=== PATIENT | male | born 1970 | race Caucasian/White ===

== ENCOUNTER 2024-02-02 14:01 | Outpatient (CLI) | payer OTHER, SELFPAY ==
[2024-02-02 15:40] LABS: Lipase 138 U/L (23-300)
[2024-02-14 16:04] LABS: Conventional Class 0; Galactose Alpha 1,3 IgE <0.10; kU/L <0.10
== END 2024-02-02 14:02 | disposition home or self-care (01) ==
LOC: ANHLAB 14:02
PROVIDERS: PCP Internal Medicine; Visit Provider Nurse Practitioner Family
DX: R74.8 Abnormal levels of other serum enzymes (principal)
CPT/HCPCS: 36415; 83690; 86008

== ENCOUNTER 2025-01-15 09:29 | Inpatient (IN) | payer OTHER, SELFPAY ==
--- NOTE | ~2025-01-15 | CT_ITS ---
EXAMINATION: CT abdomen pelvis w con DATE: 01/15/2025 10:32 INDICATION: Lower abdomen pain TECHNIQUE: Computed tomography (CT) of the abdomen and pelvis was performed with 100 cc Omnipaque 350 intravenous contrast. The dose-length product was 547.43 mGy-cm. Automated exposure control and iter ative reconstruction technique were employed. COMPARISON: None. FINDINGS: Lung bases are unremarkable. Heart size normal. No significant pleural or pericardial effus ion. Fatty infiltration of the liver. The spleen, pancreas, adrenal glands are unremarkable. Gallblad pia is present. There is sigmoid diverticulitis with a small diverticular abscess contiguous with the colon measuring 3 x 2 cm. No obstruction. Air-fluid levels present in the proximal small bowel, like ly ileus. No significant vascular abnormality. No lymphadenopathy. Small fat-containing left inguinal hernia. Mild osteoarthritis of the hips. Nonobstructing bilateral renal stones. Small right renal cy st. IMPRESSION: 1. Acute sigmoid diverticulitis with diverticular abscess measuring 3 x 2 cm. 2: Nonobstructing bilateral nephrolithiasis. Reviewed, dictated and finalized at location A.
[2025-01-15 09:34] VITALS: BP 164/94; PULSE 82; RESP 18; O2SAT 100
--- OUTSIDE RECORDS SUMMARY | 2025-01-15 09:37 | XMS_ITS | Clinical Summary ---
Author Organization [facility] Address [address] [place] [address] Care Team Providers Care Services Executive Name Role Phone Hernesto Loo NP Primary Care Provider [phone] Allergies Active Allergy Reactions Criticality Noted Date Comments Penicillins Unknown 07/28/2014 Reaction as a child. Medications No known medications Active Problems Problem Noted Date Diagnosed Date Agitation 12/21/2020 Fatigue, unspecified type 12/21/2020 Bone spur of right foot 04/21/2017 Adenopathy, cervical 01/16/2017 Abdominal pain 07/14/2016 Umbilical hernia 07/14/2016 Erectile dysfunction 07/28/2014 Overview (07/06/2020): Date Onset: 07/28/2014 Hypertriglyceridemia 07/28/2014 Overview (07/06/2020): Date Onset: 07/28/2014 Date Onset: 07/28/2014 Metatarsalgia 07/28/2014 Overview (07/06/2020): Date Onset: 07/28/2014 Personal history of other en docrine, nutritional and metabolic disease 07/28/2014 Overview (07/06/2020): Date Onset: 07/28/2014 Renal lithiasis 07/28/2014 Overview (07/06/2020): Date Onset: 07/28/2014 Resolved Problems Problem Noted Date Diagnosed Date Resolved Date Acute dermatitis 07/28/2014 12/21/2020 Overview (07/06/2020): Date Onset: 07/28/2014 Vesicular palmoplantar eczema 07/28/2014 12/21/2020 Overview (07/06/2020): Date Onset: 07/28/2014 Immunizations Immunization Administration Dates Next Due Fluzone Adult - >Age 3 (Pref illed Syringe) 07/06/2020(Deferred: Parent refused) Td (Tenivac) preservative free 02/11/2014 Family History Medical History Relation Comments No Known Problems Father COPD Mother Diabetes Mother Hypertension Mother Relation Status Comments Father Mother Social History Tobacco Use Types Packs/Day Years Used Date Smoking Tobacco: Never Smokeless Tobacco: Never Tobacco Cessation:Counseling Given: Not Answered Alcohol Use Standard Drinks/Week Comments Not Currently 0 (1 standard drink = 0.6 oz pur e alcohol) PHQ-2 Answer Date Recorded PHQ-2 Score - If the patient scores above 3, please move on to questions 3-9 0 12/21/2020 Sex and Gender Information Value Date Recorded Sex Assigned at Not on file Legal Sex Male 4:08 PM CDT Gender Identity Not on file Sexual Orientation Not on file Last Filed Vital Signs Vital Sign Reading Time Taken Comments Blood Pressure 152/99 01/27/2024 9:17 PM CDT Pulse 82 01/27/2024 9:17 PM CDT Temperature 36.7 C (98 F) 01/27/2024 5:20 PM CDT Respiratory Rate 16 01/27/2024 9:17 PM CDT Oxygen Saturation 94% 01/27/2024 9:17 PM CDT Inhaled Oxygen Concentration - - Weight 83.9 kg (185 lb) 01/27/2024 5:20 PM CDT Height 165.1 cm (5' 5 ) 01/27/2024 5:20 PM CDT Body Mass Index 30.79 01/27/2024 5:20 PM CDT Plan of Treatment Health Maintenance Due Date Last Done Comments Colorectal Cancer Screening Colonoscopy (10 Years) 1968 Annual Physical 1971 Hepatitis C 1986 Hepatitis B Vaccines (1 of 3 - 19+ 3-dose series) 1987 DTaP, Tdap and Td Vaccines ( 1 - Tdap) 02/12/2014 02/11/2014 Pneumococcal Vaccine: 50+ Ye ars (1 of 1 - PCV) 2018 Zoster Vaccines (1 of 2) 2018 COVID-19 Vaccine (1 - 2023-2 5 season) 2024 PHQ-2 (Physician [place]) 09/04/2024 Meningococcal B Vaccine Aged Out No l onger eligible based on patient's age to complete this topic Meningococcal Vaccine Aged Out No bobby dayana eligible based on patient's age to complete this topic RSV Immunizations Under 20 Months Aged Out No longer eligible based on patient's age to complete this topic Insurance [employer] Care Teams Services Executive Relationship Specialty Start Date End Date Hernesto Loo NP [address] [place] [id number] PCP - General Nurse Practitioner Family 08/07/23
--- OUTSIDE RECORDS SUMMARY | 2025-01-15 09:37 | XMS_ITS | Encounter Summary ---
Author Organization [facility] Address [facility] [place] [address] [address] Team [address] Care [address] Freight Brake Coupler Name Role Phone Martell Kelly MD Primary Care Provider U Tess Raman REGIONAL COORDINATOR Primary Care Provider [phone] Hernesto Loo REGIONAL COORDINATOR Primary Care Provider [phone] Encounter Details Date Type Department Care Team (Late st Contact Info) Description 09/16/2020 Medication Management [facility] Family & Internal Medicine [address] [address] Martell Kelly MD Social History Tobacco Use Types Packs/Day Years Used Date Smoking Tobacco: Never Smokeless Tobacco: Never Alcohol Use Standard Drinks/Week Comments Yes 3.3 (1 standard drink = 0.6 oz p ure alcohol) occ PHQ-2 Answer Date Recorded PHQ-2 Score 0 07/06/2020 Sex and Gender Information Value Date Recorded Sex Assigned at Not on file Legal Sex Male 4:08 PM CDT Gender Identity Not on file Sexual Orientation Not on file COVID-19 Exposure Response Date Recorded In the last month, have you been in contact with someone who was confirmed or suspected to have Coronavirus / COVID-19? 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 documented as of this encounter Plan of Treatment Not on file documented as of this encounter Visit Diagnoses Diagnosis Periumbilical abdominal pain- Primary Abdominal pain, periumbilic documented in this encounter Care Teams Road Freight Brake Coupler Relationship Specialty Start Date End Date Martell Kelly MD PCP - General INTERNAL MEDICINE 07/06/20 12/08/22 [place] [address], [address] [place], [place] [id number] PCP - General Nurse Practitioner Family 12/09/2208/06/23 Hernesto Loo NP [address] [place] [phone] PCP - General Nurse Practitioner Family 08/07/23 documented as of this encounter
--- OUTSIDE RECORDS SUMMARY | 2025-01-15 09:37 | XMS_ITS | Clinical Summary ---
Author Organization [facility] Address [address] [place] [phone] Care Team Providers Care Software Analyst Name Role Phone No, Physician Primary Care Provider [phone] Allergies Active Allergy Reactions Criticality Noted Date Comments Penicillins Unknown 06/22/2020 Medications clobetasoL (TEMOVATE) 0.05 % ointment Twice daily for 5 days/week to worst areas as needed 60 g 2 06/22/2020 Active Active Problems No known active problems Social History Tobacco Use Types Packs/Day Years Used Date Smoking Tobacco: Never Alcohol Use Standard Drinks/Week Comments Not Currently 0 (1 standard drink = 0.6 oz pur e alcohol) Personal Safety Answer Date Recorded Getting School Help Needed Not on file 11/17 Sex and Gender Information Value Date Recorded Sex Assigned at Not on file 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
--- OUTSIDE RECORDS SUMMARY | 2025-01-15 09:37 | XMS_ITS | Referral Summary ---
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
[2025-01-15 09:46] VITALS: BP 152/97; PULSE 84; RESP 20; O2SAT 99
--- NOTE | 2025-01-15 10:07 | ED.ABDPAIN ---
HPI - Abdominal Pain General Chief Complaint: Abdominal Pain Stated Complaint: lower abd pain Time Seen by Provider: 01/15/25 09:42 History of Present Illness HPI narrative: 54-year-old male with a history of pancreatitis, hepatic steatosis presents to emergency department with at bedside for lower abdominal pain for past several weeks, worsening over the past couple of days. Patient states the pain is diffusely throughout his lower abdomen, worse with food or fluid intake. He reports decreased p.o. intake secondary to the pain. He states he has had firm small, pebble like stools, his last bowel movement was small in caliber and this morning at 7:00 a.m.. States he took Ex-Lax, Bentyl and Protonix without improvement. Patient had a EGD and colonoscopy performed about a year and half ago at [facility] which reportedly showed multiple polyps which were removed and reportedly benign. Related Data Home Medications Medication Instructions Recorded Confirmed Last Taken Type pantoprazole 40 mg tablet,delayed 40 mg PO QAM 01/22/24 02/02/24 Unknown History release dicyclomine 10 mg capsule 10 mg PO TID 02/02/24 02/02/24 Unknown History metoclopramide HCl 10 mg tablet 10 mg PO Q6H PRN 02/02/24 02/02/24 Unknown History Allergies Allergy/AdvReac Type Severity Reaction Status Date / Time Penicillins Allergy Unknown Rash Verified 01/15/25 09:59 Review of Systems Review of Systems: All systems reviewed & are unremarkable except as noted in HPI and below PMFSH Social History Social History Smoking status: Former smoker Alcohol intake: never Substance use: current Substance use type: marijuana Exam Narrative: GENERAL: Well-appearing, well-nourished, and in no acute distress. HEAD: Normocephalic, atraumatic. EYES: EOMI. ENT: Nares clear, no rhinorrhea or epistaxis. Mucous membranes moist. NECK: Supple. CHEST: Clear to auscultation. No respiratory distress. HEART: Regular rate and rhythm. No murmur heard. Normal peripheral pulses. ABDOMEN: Quiet bowel sounds. Abdomen soft with diffuse lower abdominal tenderness. No rebound, guarding or rigidity. No CVA tenderness EXTREMITIES: Normal range of motion. No edema. SKIN: Warm, dry, no rash. NEURO: No focal deficits. Alert and oriented x3 Course Vital Signs Vital signs: Vital Signs Pulse Rate 82 01/15/25 09:34 Respiratory Rate 18 01/15/25 09:34 Blood Pressure 164/94 H 01/15/25 09:34 Pulse Oximetry 100 01/15/25 09:34 Oxygen Delivery Room Air 01/15/25 09:34 Temperature 98.3 F 01/15/25 11:04 Pulse Rate 73 01/15/25 11:04 Respiratory Rate 18 01/15/25 11:04 Blood Pressure 146/92 H 01/15/25 11:04 Pulse Oximetry 100 01/15/25 11:04 Oxygen Delivery Room Air 01/15/25 09:34 MDM - Abdominal Pain MDM Narrative Medical decision making narrative: 54-year-old male presents to the emergency department for lower abdominal pain over the past couple of weeks, worse over the past few days. Vitals with hypertension otherwise unremarkable. Exam is notable for the above. Lab work with mild leukocytosis of 10.7. Chemistries with a bicarb of 20 anion gap of 14, likely dehydration. Fluids provided. CT abdomen pelvis shows acute sigmoid diverticulitis diverticular abscess measuring 3 x 2 cm. Incidentally there is nonobstructing bilateral nephrolithiasis. Patient family at bedside updated on results. Patient received IV fluids, morphine and Zofran with improvement. Patient was started on Rocephin and Flagyl (allergy to PCN) and will be admitted to the hospital. Discussed with general surgeon, Dr. Benitez, who agrees to admission, advises keeping the patient NPO. Discussed with hospitalist, Dr. Rice, who agrees to admission. Lab Data 01/15/25 09:51 01/15/25 09:51 Labs: Lab Results 01/15/25 01/15/25 Range/Units 09:51 10:41 WBC 10.7 H (4.5-10.0) K/mm3 RBC 5.10 (4.6-6.20) M/mm3 Hgb 16.2 (14.0-18.0) g/dL Hct 46.0 (42.0-52.0) % MCV 90.2 (80-100) fl MCH 31.8 (26-34) pg MCHC 35.2 (32-36) g/dl RDW 12.1 (11.5-14.5) % Plt Count 234 (150-375) k/mm3 MPV 9.4 (7.4-10.4) fl Immature Gran % (Auto) 0.7 H (0-0.5) % Neut % (Auto) 82.2 H (45.5-73.1) % Lymph % (Auto) 8.3 L (18.3-44.2) % [place] % (Auto) 7.9 (2.6-8.5) % Eos % (Auto) 0.4 (0-4.4) % Baso % (Auto) 0.5 (0.2-1.2) % Lymph # (Auto) 0.88 L (0.9-3.2) K/mm3 [place] # (Auto) 0.8 H (0.1-0.6) K/mm3 Eos # (Auto) 0.0 (0-0.3) K/mm3 Baso # (Auto) 0.1 (0.0-0.1) K/mm3 Abs Immat Gran (auto) 0.07 H (0.00-0.031) K/mm3 Absolute Neuts (auto) 8.8 H (1.3-6.7) K/mm3 Absolute Nucleated RBC 0.000 (0.0-0.012) K/mm3 Nucleated RBC % 0.0 (0.0-0.2) % Sodium 136 L (137-145) mmol/L Potassium 3.8 (3.4-5.0) mmol/L Chloride 102 (98-107) mmol/L Carbon Dioxide 20 L (22-30) mmol/L Anion Gap 14 H (4-12) mmol/L BUN 19 (9-20) mg/dL Creatinine 1.00 (0.7-1.3) mg/dL Estim Creat Clear Calc 71 ml/min Estimated GFR > 60 (59 - ) Glucose 147 H (65-110) mg/dL Calcium 9.3 (8.4-10.2) mg/dL Total Bilirubin 1.3 (0.2-1.3) mg/dL AST 36 (17-59) U/L ALT 29 (6-50) U/L Alkaline Phosphatase 74 (38-126) U/L Total Protein 8.0 (6.3-8.2) g/dL Albumin 4.9 (3.5-5.1) g/dL Lipase 76 (23-300) U/L Urine Color Yellow (Yellow) Urine Appearance Clear (Clear) Urine pH 7.0 (5.0-9.0) Ur Specific [place] > 1.045 H (1.001-1.035) Urine Protein Trace (Negative) mg/dL Urine Glucose (UA) Negative (Negative) mg/dL Urine Ketones Trace H (Negative) mg/dL Ur Blood (Man) Negative (Negative) Urine Nitrate Negative (Negative) Urine Bilirubin Negative (Negative) Urine Urobilinogen 1.0 (<2.0) mg/dL Add Ur Microanalysis Reviewed Leukocyte Esterase Rfl Negative (Negative) OFE/UL Urine RBC 0-2 (0-2) /hpf Urine WBC 0-5 (0-3) /hpf Ur Squamous Epith Cells None seen (Few) /hpf Urine Bacteria None seen /hpf Urine Casts 0-2 Imaging Data Radiologist's impression: ITS Impressions Abdomen/Pelvis CT 01/15/25 10:35 IMPRESSION: 1. Acute sigmoid diverticulitis with diverticular abscess measuring 3 x 2 cm. 2: Nonobstructing bilateral nephrolithiasis. Discharge Plan Discharge Clinical Impression: Diverticulitis of intestine with abscess Qualifiers: Diverticulitis site: large intestine Diverticulitis bleeding: without bleeding Qualified Code(s): K57.20 - Diverticulitis of large intestine with perforation and abscess without bleeding Patient Disposition: Still a Patient Condition: Stable Instructions: Antibiotic Form Patient Language: Kiswahili Prescriptions: No Action pantoprazole 40 mg tablet,delayed release (DR/EC) 40 mg PO QAM metoclopramide HCl 10 mg tablet 10 mg PO Q6H PRN dicyclomine 10 mg capsule 10 mg PO TID Follow-up/Referrals: UNKNOWN,DOCTOR [Primary Care Provider] -
[2025-01-15 10:08] LABS: Basophils Absolute Auto 0.1 K/mm3 (0.0-0.1); Basophils Percent Auto 0.5 % (0.2-1.2); Eosinophils Percent Auto 0.4 % (0-4.4); Hemoglobin 16.2 g/dL (14.0-18.0); Immature Granulocyte Absolute 0.07 K/mm3 (0.00-0.031); Immature Granulocyte Percent A 0.7 % (0-0.5); Lymphocytes Absolute Auto 0.88 K/mm3 (0.9-3.2); Lymphocytes Percent Auto 8.3 % (18.3-44.2); Mean Corpuscular HGB Conc 35.2 g/dl (32-36); Mean Corpuscular Hemoglobin 31.8 pg (26-34); Mean Corpuscular Volume 90.2 fl (80-100); Mean Platelet Volume 9.4 fl (7.4-10.4); Monocytes Absolute Auto 0.8 K/mm3 (0.1-0.6); Monocytes Percent Auto 7.9 % (2.6-8.5); Neutrophils Absolute Auto 8.8 K/mm3 (1.3-6.7); Neutrophils Percent Auto 82.2 % (45.5-73.1); Platelet Count Result 234 k/mm3 (150-375); Red Cell Distribution Width 12.1 % (11.5-14.5); White Blood Count 10.7 K/mm3 (4.5-10.0)
[2025-01-15 10:20] LABS: Alanine Aminotransferase 29 U/L (6-50); Albumin Level 4.9 g/dL (3.5-5.1); Alkaline Phosphatase 74 U/L (38-126); Anion Gap 14 mmol/L (4-12); Aspartate Amino Transferase 36 U/L (17-59); Bilirubin,Total 1.3 mg/dL (0.2-1.3); Blood Urea Nitrogen 19 mg/dL (9-20); Calcium 9.3 mg/dL (8.4-10.2); Carbon Dioxide 20 mmol/L (22-30); Chloride 102 mmol/L (98-107); Estimated CRCL calculation 71 ml/min; Estimated Glomerular Filt Rate > 60; Glucose 147 mg/dL (65-110); Lipase 76 U/L (23-300); Potassium 3.8 mmol/L (3.4-5.0); Sodium 136 mmol/L (137-145)
[2025-01-15] MEDS: SODIUM CHLORIDE 0.9% IV 1,000 ML 999 ML IV CONT (10:22)
[2025-01-15] MEDS: ONDANSETRON INJ 4 MG/2 ML VIAL IV PUSH ×2 (10:22→12:06)
[2025-01-15] MEDS: MORPHINE SULFATE (*CRX) 4 MG/ML INJ IV PUSH ×4 (10:23→19:45)
--- OUTSIDE RECORDS SUMMARY | 2025-01-15 10:27 | XMS_ITS | Clinical Summary ---
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
--- OUTSIDE RECORDS SUMMARY | 2025-01-15 10:27 | XMS_ITS | Referral Summary ---
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
--- OUTSIDE RECORDS SUMMARY | 2025-01-15 10:27 | XMS_ITS | Data Portability ---
Author Organization [facility] [employer], Main Office Address [address] [place] [address] Assessment No assessment recorded. Plan of Treatment Reminders Order Date Submit Date Provider Last Modified By Organization Details Last Modified Time Details Appointments None recorded. Lab vitamin D, 25-hydroxy , total, serum [address] (Lab), [address] [place], [address], 3 08:41:37 CBC w/ auto diff [address] (Lab), [address] [place], [address], 3 08:41:37 PSA, serum or plasma [email or web address] (Lab), [address] [place], [address], 3 08:41:37 lipid panel, serum [email or web address] (Lab), [address] [place], [address], 3 08:41:37 CMP, serum or plasma [address] (Lab), [address] [place], [address], 3 08:41:37 [email or web address] lobin, total, blood [address] (Lab), [address] [place], [address], 3 08:41:38 TSH, serum or plasma 2022 023 [facility] (Lab), [address] [place], [address], 3 15:07:19 iron + TIBC + ferritin, serum [email or web address] (Lab), [address] [place], [address], 3 08:41:38 noninvasiv e colorectal cancer DNA + occult blood screening, QL, stool 2022 023 [place] [address] [facility] (Cologuard Orders Only), [address], [address], [place], [address], 3 08:41:38 urinalysis , reflex culture [address] (Lab), [address] [place], [address], 3 08:41:38 vitamin B12 + folate, serum or blood [address] (Lab), [address] [place], [address], 3 08:41:38 Referral gastroente rologist referral - Please call patient to schedule an appointmen t. Thank you 2023 024 [email or web address] Baudilio Ovalle MD, [address] [facility] [address], [address], [address], 4 08:51:17 Procedures colonoscop y procedure (PROC) 2022 023 ZAFAR Hyde MD, [address] [place] [address], [address], 3 12:42:43 upper endoscopy procedure (EGD) (PROC) 2022 023 [facility] (Pre-Screen), [address] [place], [address], 3 12:42:21 Surgeries None recorded. Imaging home sleep study - *Please call pt to schedule* 2022 023 [email or web address] 56 [facility] (Central Scheduling), [address] [place], [address], 3 11:40:24 Medication Orders cyclobenza danilo 10 mg tablet 2023 024 [facility], [address] [place] [address], [id number], 4 20:55:22 famotidine 20 mg tablet 2023 024 [facility], [address] [place] [address], [id number], 4 20:35:24 pantoprazo le 40 mg tablet,del ayed release 2023 024 [facility], [address] [place] [address], [id number], 4 20:40:38 Golytely 236 gram-22.74 gram-6.74 gram-5.86 gram oral solution 2022 023 [facility] #[id number], [address] [place] [address], [id number], 3 15:01:00 Patient TargetsNo targets recorded. Patient Instructions Encounter Date Encounter Id Patient Instructions Last Modified By Organization Details Last Modified Time 08/02/2023 [id number] GOLYTELY [email or web address] Not available 14:45:13 PT WITH A POSITI VE COLOGARD TEST. PT NEEDS AN EGD / SCREENING COLON . R/O PUD/GASTRITIS POLYP CA . RISKS BENEFITS AND COMPLICATIONS WERE EXPLAINED TO PT . ( BLEEDING , PERFORATION , INFECTION , ) PT VERBALIZES UNDERSTANDING AND IS WILLING [email or web address] Not available 08/02/2023 14:45:49 Reason for Referral Chemical Strength Tester Referral for Pancreatitis Please call patient to schedule an appointment. Thank you Referring Physician: Hernesto Loo, Family Medicine, Encounter Date: 12/27/2023 Results Created Date Observation Date Name Description Value Unit Range Abnormal Flag Note LastModifiedBy Organization Detail LastModifiedTime 08/07/2008/07/2023 upper endos copy proce dure (EGD) (PROC ) No observ ation record ed. [email or web address] [facility] (Pre-Screen) [address] [place], [address], 08/07/2023 12:42:21 08/07/20 23 08/07/2023 colon oscop y proce dure (PROC ) No observ ation record ed. [email or web address] Sailaja Hyde MD [address] [place] [address], [address], 08/07/2023 12:42:43 Result Notes None recorded. Problems Name Problem SNOMED Code Status Onset Date Resolution Date Notes Provider Name and Address Organization Details Recorded Time Lateral epicondyli tis 507127981 Active Not Available [facility] 3 17:44:26 Brachial neuritis 84864663 Active Not Available [facility] 3 17:44:26 Dizziness 738921926 Active 2022 HANDY Poe-Rex [address], [address] , Dr. TATTOFF 3 11:31:45 Snoring 77232245 Active [address] [facility], [place] [address], [place], [address] , Dr. TATTOFF 3 11:34:26 Cobalamin deficiency 931045279 Active 2022 HANDY Poe-C [address], [address] , [facility] 3 11:38:01 Vitamin D deficiency 12725654 Active 2022 ANNETTE PoeP-C [address], [address] , [facility] 3 11:38:05 Colorectal cancer detected by DNA-based stool screening 720130319 Active 2022 Sailaja Hyde MD [address], [address] , [facility] 3 14:44:35 Pancreatit is 03429015 Active 2023 ANNETTE PoeP-C [address], [address] , [facility] 4 15:49:37 Chronic neck pain 7759938100132 Active 2023 ANNETTE PoeP-C [address], [address] , [facility] 4 15:51:15 Abdominal pain 85898296 Active 2023 KEATON Luna [address], [address] , [facility] 4 17:10:10 Problem Notes None recorded. Procedures Surgical History None recorded. Imaging Results Imaging Date Name Status [facility]Modified by [facility] Details LastModified Time 08/07/2023 upper endoscopy procedure (EGD) (PROC) completed karissa [facility] (Pre-Screen) [address] [place], [address], 08/07/2023 12:42:21 08/07/2023 colonoscopy procedure (PROC) completed karissa Hyde MD [address] [place] [address], [address], 08/07/2023 12:42:43 Procedure Notes None recorded. Medical Equipment None Reported. Allergies Allergen ID Allergen Name Allergen Category Reaction Reaction Severity Criticality Documentation Date Start Date Code Code System Note Provider Name and Address Organization Details Recorded Time 68654 Product containin g penicilli n (product) medicatio n Not available Not available Not available 05/19/2023 20874 8001 SNOMED Angelina Can RN null, [place] [facility] 3 11:08:04 Medications Name Sig Start Date Stop Date Status Note LastModified by Organization Details LastModified Time cyclobenzap rine 10 mg tablet TAKE 1 TABLET BY MOUTH THREE TIMES DAILY active Not Available Not Available No t Available prednisone 10 mg tablet 03/10 completed Not Available Not Available Not Available clindamycin HCl 300 mg capsule TAKE ONE CAPSULE BY MOUTH 3 TIMES A DAY 03/10 completed Not Available Not Available Not Available azithromyci n 250 mg tablet TAKE 2 TABLETS BY MOUTH TODAY, THEN TAKE 1 TABLET DAILY FOR 4 DAYS 03/10 completed Not Available Not Available Not Available permethrin 5 % topical cream MASSAGE INTO SKIN FROM HEAD TO SOLES OF FEET. WASH OFF AFTER 8-14 HOURS 03/10 completed Not Available Not Available Not Available famotidine 20 mg tablet TAKE 1 TABLET BY MOUTH TWICE DAILY active Not Available Not Available No t Available pantoprazol e 40 mg tablet,cornell yed release TAKE 1 TABLET BY MOUTH EVERY DAY active Not Available Not Available No t Available diclofenac sodium 75 mg tablet,cornell yed release TK 1 T PO BID WITH FOOD 03/10 completed Not Available Not Available Not Available mupirocin 2 % topical ointment APPLY TO AFFECTED AREA 3 TIMES A DAY 03/10 completed Not Available Not Available Not Available methylpredn isolone 4 mg tablets in a dose pack 03/10 completed Not Available Not Available Not Available indomethaci n ER 75 mg capsule,ext ended release 03/10 completed Not Available Not Available Not Available dicyclomine 10 mg capsule Take 1 capsule 3 times a day by oral route before meal(s) for 30 days, for abdominal pain , diarrhea. active Not Available Not Available No t Available metoclopram volodymyr 10 mg tablet active Not Available Not Available Not Available azithromyci n 500 mg tablet TAKE 4 TABLETS BY MOUTH ONCE 03/10 completed Not Available Not Available Not Available GaviLyte-G 236 gram-22.74 gram-6.74 gram-5.86 gram oral solution MIX AND DRINK DIRECTED active Not Available Not Available No t Available Vitals Date Recorded Body weight Body mass index (BMI) Body height Body temperature Heart rate Oxygen saturation Oxygen saturation in Arterial blood by Pulse oximetry Systolic blood pressure Diastolic blood pressure Provider Name and Address Organization Details Last Updated DateTime 3 26060.2 9 g 32.9 kg/m2 165.1 cm 98.6 [degF] 74 /min 95 % 95 % 128 mm[Hg] 80 mm[Hg] Angelina Can RN [facility] [employer] [facility] 3 11:07:53 Date Recorded Body height Body mass index (BMI) Body weight Heart rate Oxygen saturation Oxygen saturation in Arterial blood by Pulse oximetry Systolic blood pressure Diastolic blood pressure Provider Name and Address Organization Details Last Updated DateTime 3 165.1 cm 32.9 kg/m2 40291.2 9 g 76 /min 96 % 96 % 126 mm[Hg] 78 mm[Hg] MILA Guadarrama [facility] [employer] [facility] 3 14:37:36 Date Recorded Body height Body mass index (BMI) Body weight Body temperature Heart rate Oxygen saturation Oxygen saturation in Arterial blood by Pulse oximetry Systolic blood pressure Diastolic blood pressure Provider Name and Address Organization Details Last Updated DateTime 4 165.1 cm 31.8 kg/m2 70019.1 4 g 98.6 [degF] 90 /min 97 % 97 % 150 mm[Hg] 92 mm[Hg] Zenaida Marin RN [facility] [employer] [facility] 4 15:43:58 Social History Question Answer Notes LastModified by Organizat ion Details LastModified Time Tobacco Smoking Status Never Smoker Angelina Can RN [facility], [facility] [employer] [facility] 05/19/2023 11:08:23 What Is Your Level Of Caffeine Consumption? Occasional Information not available 05/19/2023 Sex: Unknown Functional Status Question Answer Note LastModified by Organizat ion Details LastModified Time Do you use any illicit or recreational drugs? No Information not available 05/19/2023 What is your level of alcohol consumption? None Information not available 05/19/2023 Mental Status None recorded. Family History Nothing Reported. Medical History No medical history recorded. Past Encounters Encounter ID Performer Location Encounter Start Date Encounter Closed Date Diagnosis/Indication Diagnosis SNOMED-CT Code Diagnosis ICD10 Code Diagnosis Note [id number] Hazel Reynolds MD [facility] Primary Care [address] [place] [address] 05/19/2023 10:52:14 05/19/2023 12:04:06 Dizziness 720784312 R42 was drinking 3 monsters/d ay but has recently quitnoted some dizziness for a couple days after stopping, but has since resolvedHa s increased water intake-rhonda renny 1 liter/day Adult heal th examination 587279152 Z00.00 Encouraged fresh fruits and veggiesPla ns to Increase daily water intakeEnco urage 30 mins of daily exerciseCo lonoscopy- cologuard orderedsmo kes marijuana recreation al, no nicotine Snoring 27972413 R06.83 spouse notes snoring can be heard through doordeclin es in [facility] Cobalamin deficiency 190 838781 E53.8 Vitamin D deficiency 347 15785 E55.9 Sleep apnea 39606909 G47 .30 [id number] Sailaja Hyde MD [facility] General Surgery 4 [facility], [facility] [address] [place] [address] 08/02/2023 14:36:13 08/02/2023 15:32:26 Colorectal cancer detected by DNA-based stool screening 298203821 R19.5 [id number] Hazel Reynolds MD [facility] Primary Care [address] [place] [address] 12/27/2023 15:36:40 12/27/2023 16:13:28 Pancreatitis 68058537 K85.90 -pancreati tis noted in recent ER visit, pt noted symptoms starting approx 2 weeks before-has avoided fried foods/junk foods since ER visit, symptoms continue-g astroenter ology referral given-tria l famotidine to use with the pantoprazo le Chronic neck pain 298873 2621 107 M54.2 -chronic issue-ROM and strength are intact with pain-has been working with the chiropract or-trial mady carrasco 10mg Health Concerns Section Related Observation LastModified by Organization Detai ls LastModified Time None Recorded Concern Status LastModified by Organization Details LastModified Time None Recorded Advance Directives Directive None Recorded Payers Encounter Date Sequence Insurance Name Policy Number Policy Lowe Covered Member ID Lowe Member ID Guarantor Name 05/19/2023 1 [employer] (PPO) [id number] Abby Pugh [id number] Jamaal Pugh 08/02/2023 1 [employer] (PPO) [id number] Abby Pugh [id number] Jamaal Pugh 12/27/2023 1 [facility] (POS II) [id number] Abby Pugh [id number] Jamaal Pugh Notes Date Note Type Note Provider Name and Address Organization Details Recorded Time 05/19/2023 text/html 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 BENJI Poe [address] [place] [address], [place], [address], [employer] 05/19/2023 12:10:08 08/02/2023 text/html PT WAS SEEN IN THE OFFICE TODAY FOR A POSITIVE COLOGUARD TEST . . PT DENIES ABD PAIN /N/V/D/BLEEDING /WT LOSS/ NSAIDS . Sailaja Hyde MD [address] [place] [address], [place], [address], Dr. TATTOFF 08/02/2023 15:00:57 12/27/2023 text/html Pt is here for ER f/u BENJI Poe [address] [place] [address], [place], [address], Dr. TATTOFF 12/28/2023 08:31:33
--- OUTSIDE RECORDS SUMMARY | 2025-01-15 10:27 | XMS_ITS | Clinical Summary ---
Author Organization [facility] Address [address] [place] [address] Care Team Providers Care Major Gifts Manager Name Role Phone Hernesto Loo NP Primary Care Provider [phone] Allergies Active Allergy Reactions Criticality Noted Date [...] - 2023-2 5 season) 2024 PHQ-2 (Physician Walton) 09/04/2024 Meningococcal B Vaccine Aged Out No l onger eligible based on patient's age to complete this topic Meningococcal Vaccine Aged Out No bobby dayana eligible based on patient's age to complete this topic RSV Immunizations Under 20 Months Aged Out No longer eligible based on patient's age to complete this topic Insurance [employer] Care Teams Major Gifts Manager Relationship Specialty Start Date End Date Hernesto Loo NP [address] [address] PCP - General Nurse Practitioner Family 08/07/23
--- OUTSIDE RECORDS SUMMARY | 2025-01-15 10:28 | XMS_ITS | Encounter Summary ---
Author Organization [facility] Address [facility] [place] [address] Care Team Providers Care Wind Farm Operations Manager Name Role Phone Martell Kelly MD Primary Care Provider U Tess Raman [employer]HADEN [employer]BER Primary Care Provider [phone] Hernesto Loo [employer] MEMBER Primary Care Provider [phone] Encounter Details Date Type Department Care Team (Late st Contact Info) Description 09/16/[address] [facility] Family & Internal Medicine [address] [address] Martell Kelly MD Social History [...] COVID-19? 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 documented as of this encounter Plan of Treatment Not on file documented as of this encounter Visit Diagnoses Diagnosis Periumbilical abdominal pain- Primary Abdominal pain, periumbilic documented in this encounter Care Teams Wind Farm Operations Manager Relationship Specialty Start Date End Date Martell Kelly MD PCP - General INTERNAL MEDICINE 07/06/20 12/08/22 [place] [address] [place], [place] [id number] PCP - General Nurse Practitioner Family 12/09/2208/06/23 Hernesto Loo NP [address] [place] [id number] PCP - General Nurse Practitioner Family 08/07/23 documented as of this encounter
--- OUTSIDE RECORDS SUMMARY | 2025-01-15 10:28 | XMS_ITS | Continuity of Care Document ---
Author Organization [facility] Address [address] [place] [address] [place] [address] Phone Care Team Providers Care Meat Cutting Teacher Name Role Phone Sammy Cowan DO Unavailable Unavailable Advance Directives Directive Yes / No Effective Date File Name No Information Encounters Encounter Description Practice Location Reason(s) For Visit Diagnoses Date Provider Providers Copied on Encounter [facility], [address], [place], [place], [id number], [place] tel:[phone] [facility] [place] No Information Camryn Lerma. [address] [place], [address], [place]. tel:[phone] Family History Family Member Type Diagnosis Age At Onset No Information Payers Payer name Insurance type Covered republican ID Authoriza tion(s) No Information Social History Type Description Quantity Date Captured Comments Sex Male Smoking Status No Information Chief Complaint And Reason For Visit No Information Reason For Referral Reason For Referral No Information History Of Present Illness Encounter Date Complaint History Of Prese nt Illness No Information Functional Status Date Functional Assessmen t No Information Instructions Date Instruction Additional Infor mation No Information Assessments Type Assessment Date No Information Patient Care Teams Name Effective Dates (start - stop) Status Members No Information
[2025-01-15 11:03] LABS: Add Urine Microscopic? YES; Appearance Urine Clear (Clear); Bacteria Urine None Seen /hpf; Bilirubin Urine Negative (Negative); Blood Urine Negative (Negative); Color Urine Yellow (Yellow); Glucose Urine UA Negative (Negative); Ketones Urine Trace mg/dL (Negative); Leukocyte Esterase Ur Negative LEU/UL (Negative); Need Manual Microscopic Reviewed; Nitrate Urine Negative (Negative); Non Pathogenic Casts 0-2; Protein Urine Trace mg/dL (Negative); RBC Urine 0-2 /hpf (0-2); Specific Grav Ur > 1.045 (1.001-1.035); Squamous Epithelial Cell Urine None Seen /hpf (Few); WBC Urine 0-5 /hpf (0-3)
[2025-01-15 11:04] VITALS: BP 146/92; PULSE 73; RESP 18; TEMP 36.8; O2SAT 100
[2025-01-15 12:03] LABS: Lactic Acid Reflex 1.2 mmol/L (0.7-2.0)
[2025-01-15] MEDS: metroNIDAZOLE 500 MG/ISO 100ML 500 MG/100 ML BAG 100 MG IVPB ×2 (12:19→21:40)
[2025-01-15 13:08] VITALS: BMI 29.3
[2025-01-15 13:26] VITALS: BP 157/89; PULSE 70; RESP 16; TEMP 36.9; O2SAT 97
--- NOTE | 2025-01-15 13:38 | ADMGEN ---
This patient, Jamaal Pugh, was admitted to 3 [facility] Surg Room 331-01. Patient/family oriented to hospital policies and general routines including ID bracelet, bed and alarms, visiting hours, pain management, procedures, bathroom and other care routines, personal items, smoking policy, room service/diet, and visiting hours. Information on how to activate the Rapid Response Team has been discussed. Patient/Family are encouraged to report perceived risks to care and to ask questions if they do not understand what they are told or what they should do.
[2025-01-15] MEDS: SODIUM CHLORIDE 0.9% IV 1,000 ML 125 ML IV CONT ×2 (14:15→23:11)
--- NOTE | 2025-01-15 14:40 | PM.IMHP ---
H&P: HPI History of Present Illness Date/Time: 01/15/25 14:40 Chief Complaint: Abdominal pain Narrative: Jamaal Pugh is a 54 year old man hx pancreatitis, who presented for nausea and abdominal pain and was admitted for treatment of a diverticular abscess. He reports intermittent low abdominal pain for several weeks. For the last few days he's had severe sharp stabbing pain and nausea, no vomiting, so presented to the ED. He reports recent constipation with small hard stools. Took ex-lax. Also recently taking bentyl for pain but hasn't helped much the last 2 days. Takes daily pantoprazole for severe GERD symptoms Otherwise has been healthy. Diagnosed with acute pancreatitis last year, unclear trigger. Doesn't' drink ETOH and nonsmoker. Review of Systems Review of Systems: No fever + Chills Hard stools PMFSH Past Medical History Medical History Pancreatitis Gallbladder polyp Hepatic steatosis Surgical History Surgical History (Updated 01/15/25 @ 15:49 by HANDY Herrera) History of umbilical hernia repair History of colonoscopy with polypectomy Social History Social History Smoking status: Never smoker Alcohol intake: never Substance use: never Substance use type: marijuana Do You Feel Safe in your Home?: Yes Lack of Transportation: No Lack of Food: Never True Current Housing: I Have Housing Concerned About Future Housing: No Difficulty Paying Gas/Electric Bills: No Difficulty Paying for Meds: No Currently Unemployed: No Education: High School Diploma/GED Difficulty w/ Childcare or Family Care: No Spiritual care concerns: No Meds Home Medications and Allergies Home Medications Medication Instructions Recorded Confirmed Type pantoprazole 40 mg tablet,delayed 40 mg PO QAM 01/22/24 01/15/25 History release dicyclomine 10 mg capsule 10 mg PO TID 02/02/24 01/15/25 History Allergies Allergy/AdvReac Type Severity Reaction Status Date / Time Penicillins Allergy Unknown Rash Verified 01/15/25 13:19 Vital Signs Vital Signs - 24 hr 01/15/25 09:34 01/15/25 09:46 01/15/25 11:04 Temperature 98.3 F Pulse Rate 82 84 73 Respiratory Rate 18 20 18 Blood Pressure 164/94 H 152/97 H 146/92 H Pulse Oximetry 100 99 100 Oxygen Delivery Room Air 01/15/25 13:26 Temperature 98.5 F Pulse Rate 70 Respiratory Rate 16 Blood Pressure 157/89 H Pulse Oximetry 97 Oxygen Delivery Exam Narrative: General - Awake and alert. No acute distress Eyes - PERRLA, EOM intact ENT - No thrush, No erythema Neck - No noticeable or palpable swelling Lymph Nodes - No lymphadenopathy Cardiovascular - RRR no m/r/g, no JVD Lungs: Clear to auscultation, No wheezing, use of accessory muscles, no crackles or wheezes. Skin - Skin warm and dry, no wounds or rashes Abdomen - Normal bowel sounds, abdomen soft and tender low abdomen Extremities - No edema, cyanosis or clubbing Musculoskeletal - 5/5 strength, normal range of motion, no swollen or erythematous joints. Neurological – Alert and oriented x 3, CN 2-12 grossly intact. Psych: Normal mood and affect H&P: Results Labs Labs: Short CBC 01/15/25 Range/Units 09:51 WBC 10.7 H (4.5-10.0) K/mm3 Hgb 16.2 (14.0-18.0) g/dL Hct 46.0 (42.0-52.0) % Plt Count 234 (150-375) k/mm3 BMP 01/15/25 09:51 Sodium 136 L Potassium 3.8 Chloride 102 Carbon Dioxide 20 L BUN 19 Creatinine 1.00 Glucose 147 H Calcium 9.3 Liver Function 01/15/25 Range/Units 09:51 Total Bilirubin 1.3 (0.2-1.3) mg/dL AST 36 (17-59) U/L ALT 29 (6-50) U/L Alkaline Phosphatase 74 (38-126) U/L Albumin 4.9 (3.5-5.1) g/dL Urine 01/15/25 Range/Units 10:41 Urine Color Yellow (Yellow) Urine Appearance Clear (Clear) Urine pH 7.0 (5.0-9.0) Ur Specific [place] > 1.045 H (1.001-1.035) Urine Protein Trace (Negative) mg/dL Urine Glucose (UA) Negative (Negative) mg/dL Assessment and Plan Assessment and plan (1) Diverticulitis of intestine with abscess: Qualifiers: Diverticulitis bleeding: without bleeding Diverticulitis site: large intestine Qualified Code(s): K57.20 - Diverticulitis of large intestine with perforation and abscess without bleeding Code(s): K57.80 - Diverticulitis of intestine, part unspecified, with perforation and abscess without bleeding Status: Acute Assessment and Plan: 01/15/25 CT abd/pelvis showed 1. Acute sigmoid diverticulitis with diverticular abscess measuring 3 x 2 cm. 2: Nonobstructing bilateral nephrolithiasis. Started on empiric Ceftiraxone and Flagyl in the ED. Surgery consulted NPO (2) Acute pain: Code(s): R52 - Pain, unspecified Status: Acute Assessment and Plan: Continue Morphine prn Zofran prn for nausea (3) Hx of pancreatitis: Code(s): Z87.19 - Personal history of other diseases of the digestive system Status: Acute Assessment and Plan: No hx ETOH use Check lipid profile in AM, HgbA1c Quality VTE Prophylaxis VTE prophylaxis: mechanical ordered (Pharmacologic pending surgical eval) Hospitalist MIPS Advance Care Plan I have confirmed that the patient's Advanced Care Plan is present, code status is documented, or surrogate decision maker is listed in patient medical record.: Yes Medication Reconciliation I have utilized all available resources to obtain, update and review the patients current medications (includes all prescriptions, OTC, herbals, cannabis, and nutritional supplements).: Yes
--- NOTE | 2025-01-15 15:03 | P.CONGS_ITS ---
Assessment and Plan Assessment and plan (1) Diverticulitis of intestine with abscess: Qualifiers: Diverticulitis bleeding: without bleeding Diverticulitis site: large intestine Qualified Code(s): K57.20 - Diverticulitis of large intestine with perforation and abscess without bleeding Code(s): K57.80 - Diverticulitis of intestine, part unspecified, with perforation and abscess without bleeding Status: Acute Assessment and Plan: CT scan reviewed and discussed with the patient. There is evidence of acute sigmoid diverticulitis with a small diverticular abscess. This is his first episode of diverticulitis. He had a colonoscopy less than 2 years ago at [facility]. WBC count only mildly elevated and he has no diffuse peritoneal signs. We would recommend treating this conservatively for now with broad-spectrum IV antibiotics, bowel rest, and IV fluids. Will continue to follow with serial abdominal exams and labs. (2) Hepatic steatosis: Code(s): K76.0 - Fatty (change of) liver, not elsewhere classified Status: Chronic Plan I have discussed the patient's case and plan of care with Dr. Benitez. History of Present Illness Consult details Consult date: 01/15/25 Reason for consult: other (Diverticulitis with abscess) Requesting physician: Silvia Martinez PA-C Narrative: This is a 54-year-old man with a history of hepatic steatosis, who presented to the emergency department for evaluation of lower abdominal pain x the past few weeks. His pain has been diffuse across his lower abdomen and seemed to be worse with any oral intake. He had been eating and drinking less due to his pain. He has had firm, small stools, with his last bowel movement earlier this morning. He had taken dicyclomine, MiraLax, and Protonix without improvement. His pain has progressed over the past 2 days and he decided come into the ED for evaluation. He had a colonoscopy and EGD a little less than 2 years ago at [facility] which showed multiple polyps that were removed. Workup in the ED showed mild leukocytosis and CT evidence of acute sigmoid diverticulitis with a 3 x 2 cm diverticular abscess. He is now admitted in this setting and started on broad-spectrum IV antibiotics. No previous history of diverticulitis. Review of Systems 2 Review of Systems: All systems reviewed & are unremarkable except as noted in HPI and below PMFSH Past Medical History Medical History Pancreatitis Gallbladder polyp Hepatic steatosis Surgical History Surgical History History of umbilical hernia repair History of colonoscopy with polypectomy Social History Social History Smoking status: Never smoker Alcohol intake: never Substance use: never Substance use type: marijuana Do You Feel Safe in your Home?: Yes Lack of Transportation: No Lack of Food: Never True Current Housing: I Have Housing Concerned About Future Housing: No Difficulty Paying Gas/Electric Bills: No Difficulty Paying for Meds: No Currently Unemployed: No Education: High School Diploma/GED Difficulty w/ Childcare or Family Care: No Spiritual care concerns: No Meds Home Medications and Allergies Home Medications Medication Instructions Recorded Confirmed Type pantoprazole 40 mg tablet,delayed 40 mg PO QAM 01/22/24 01/15/25 History release dicyclomine 10 mg capsule 10 mg PO TID 02/02/24 01/15/25 History Allergies Allergy/AdvReac Type Severity Reaction Status Date / Time Penicillins Allergy Unknown Rash Verified 01/15/25 13:19 Vital Signs Vital Signs - 24 hr 01/15/25 09:34 01/15/25 09:46 01/15/25 11:04 Temperature 98.3 F Pulse Rate 82 84 73 Respiratory Rate 18 20 18 Blood Pressure 164/94 H 152/97 H 146/92 H Pulse Oximetry 100 99 100 Oxygen Delivery Room Air 01/15/25 13:03 01/15/25 13:26 Temperature 98.5 F Pulse Rate 70 Respiratory Rate 16 Blood Pressure 157/89 H Pulse Oximetry 97 Oxygen Delivery Room Air Exam 2 Const: General: comfortable and no acute distress Nutritional Appearance: a verage body habitus Orientation/consciousness: patient oriented x3 HENMT: Head: normocephalic and atraumatic Ears: hearing grossly normal bilaterally Mouth: Yes moist mucous membranes Eyes: General: appearance normal, both eyes and all related structures P upils: Equal, round and reactive pupils present Neck: Neck: normal visual inspection and full ROM Resp: Effort & Inspection: no respiratory distress Auscultation: clear to auscultation bilaterally Cardio: Rate: regular rate Rhythm: regular rhythm Peripheral pulses: P eripheral pulses 2+ throughout GI: Inspection: non-distended and scar (small umbilical scar) GI Palp: Yes Soft to palpation, Yes Tenderness to palpation present (GI) (across the lower abdomen), No Guarding due to palpation present (GI), Yes No hepatosplenomegaly present and No Rebound tenderness present Auscultation: normal bowel sounds Skin: General skin exam: normal color Neuro: General: moves all extremities and no focal motor deficits Speech: n ormal speech Motor exam (neuro): 5/5 motor strength present throughout Extrem: General: normal to inspection and no edema Psych: Mental Status: mental status grossly normal Attitude: cooperative Insight: Good insight present (Psych) Judgement: Good judgement present (Psych) Results Labs 01/15/25 09:51 01/15/25 09:51 Labs: Abnormal lab results 01/15/25 01/15/25 Range/Units 09:51 10:41 WBC 10.7 H (4.5-10.0) K/mm3 Immature Gran % (Auto) 0.7 H (0-0.5) % Neut % (Auto) 82.2 H (45.5-73.1) % Lymph % (Auto) 8.3 L (18.3-44.2) % Lymph # (Auto) 0.88 L (0.9-3.2) K/mm3 Story # (Auto) 0.8 H (0.1-0.6) K/mm3 Abs Immat Gran (auto) 0.07 H (0.00-0.031) K/mm3 Absolute Neuts (auto) 8.8 H (1.3-6.7) K/mm3 Sodium 136 L (137-145) mmol/L Carbon Dioxide 20 L (22-30) mmol/L Anion Gap 14 H (4-12) mmol/L Glucose 147 H (65-110) mg/dL Ur Specific [place] > 1.045 H (1.001-1.035) Urine Ketones Trace H (Negative) mg/dL Diabetes panel 01/15/25 Range/Units 09:51 Sodium 136 L (137-145) mmol/L Potassium 3.8 (3.4-5.0) mmol/L Chloride 102 (98-107) mmol/L Carbon Dioxide 20 L (22-30) mmol/L BUN 19 (9-20) mg/dL Creatinine 1.00 (0.7-1.3) mg/dL Glucose 147 H (65-110) mg/dL Calcium 9.3 (8.4-10.2) mg/dL AST 36 (17-59) U/L ALT 29 (6-50) U/L Alkaline Phosphatase 74 (38-126) U/L Total Protein 8.0 (6.3-8.2) g/dL Albumin 4.9 (3.5-5.1) g/dL Calcium panel 01/15/25 Range/Units 09:51 Calcium 9.3 (8.4-10.2) mg/dL Albumin 4.9 (3.5-5.1) g/dL Pituitary panel 01/15/25 Range/Units 09:51 Sodium 136 L (137-145) mmol/L Potassium 3.8 (3.4-5.0) mmol/L Chloride 102 (98-107) mmol/L Carbon Dioxide 20 L (22-30) mmol/L BUN 19 (9-20) mg/dL Creatinine 1.00 (0.7-1.3) mg/dL Glucose 147 H (65-110) mg/dL Calcium 9.3 (8.4-10.2) mg/dL Adrenal panel 01/15/25 Range/Units 09:51 Sodium 136 L (137-145) mmol/L Potassium 3.8 (3.4-5.0) mmol/L Chloride 102 (98-107) mmol/L Carbon Dioxide 20 L (22-30) mmol/L BUN 19 (9-20) mg/dL Creatinine 1.00 (0.7-1.3) mg/dL Glucose 147 H (65-110) mg/dL Calcium 9.3 (8.4-10.2) mg/dL Total Bilirubin 1.3 (0.2-1.3) mg/dL AST 36 (17-59) U/L ALT 29 (6-50) U/L Alkaline Phosphatase 74 (38-126) U/L Total Protein 8.0 (6.3-8.2) g/dL Albumin 4.9 (3.5-5.1) g/dL All other labs normal. Imaging Additional studies: ITS Impressions Abdomen/Pelvis CT 01/15/25 10:35 IMPRESSION: 1. Acute sigmoid diverticulitis with diverticular abscess measuring 3 x 2 cm. 2: Nonobstructing bilateral nephrolithiasis.
[2025-01-15 20:35] VITALS: BP 131/64; PULSE 74; RESP 16; TEMP 36.4; O2SAT 96
[2025-01-16 06:00] VITALS: BP 149/79; PULSE 69; RESP 18; TEMP 36.3; O2SAT 98
[2025-01-16 06:28] LABS: Basophils Percent Auto 0.4 % (0.2-1.2); Eosinophils Absolute Auto 0.1 K/mm3 (0-0.3); Hematocrit 41.9 % (42.0-52.0); Hemoglobin 14.8 g/dL (14.0-18.0); Immature Granulocyte Absolute 0.06 K/mm3 (0.00-0.031); Immature Granulocyte Percent A 0.7 % (0-0.5); Lymphocytes Absolute Auto 0.97 K/mm3 (0.9-3.2); Lymphocytes Percent Auto 11.8 % (18.3-44.2); Mean Corpuscular HGB Conc 35.3 g/dl (32-36); Mean Corpuscular Volume 90.7 fl (80-100); Mean Platelet Volume 8.9 fl (7.4-10.4); Monocytes Absolute Auto 0.8 K/mm3 (0.1-0.6); Monocytes Percent Auto 9.3 % (2.6-8.5); Neutrophils Absolute Auto 6.3 K/mm3 (1.3-6.7); Neutrophils Percent Auto 76.8 % (45.5-73.1); Platelet Count Result 200 k/mm3 (150-375); Red Blood Count 4.62 M/mm3 (4.6-6.20); Red Cell Distribution Width 12.1 % (11.5-14.5); White Blood Count 8.3 K/mm3 (4.5-10.0)
[2025-01-16] MEDS: metroNIDAZOLE 500 MG/ISO 100ML 500 MG/100 ML BAG 100 MG IVPB ×3 (06:31→22:20)
[2025-01-16 06:37] LABS: Alanine Aminotransferase 23 U/L (6-50); Albumin Level 4.1 g/dL (3.5-5.1); Alkaline Phosphatase 60 U/L (38-126); Anion Gap 9 mmol/L (4-12); Aspartate Amino Transferase 33 U/L (17-59); Bilirubin,Total 0.9 mg/dL (0.2-1.3); Blood Urea Nitrogen 17 mg/dL (9-20); Calcium 8.6 mg/dL (8.4-10.2); Carbon Dioxide 25 mmol/L (22-30); Chloride 102 mmol/L (98-107); Cholesterol 210 mg/dL (0-200); Estimated CRCL calculation 76 ml/min; Estimated Glomerular Filt Rate > 60; Glucose 96 mg/dL (65-110); HDL Direct 42 mg/dL; Potassium 3.9 mmol/L (3.4-5.0); Sodium 136 mmol/L (137-145); Triglycerides 108 mg/dL (<150)
[2025-01-16 06:39] LABS: INR 1.1; Prothrombin Time 14.5 Seconds (11.1-14.7)
[2025-01-16 06:48] LABS: LDL Cholesterol Direct 124 mg/dL
[2025-01-16 06:54] LABS: Hemoglobin A1C 4.9 % (<5.7)
[2025-01-16] MEDS: SODIUM CHLORIDE 0.9% IV 1,000 ML 125 ML IV CONT ×2 (07:31→17:30)
[2025-01-16] MEDS: PANTOPRAZOLE SODIUM IV 40 MG VIAL IV PUSH (07:31)
--- NOTE | 2025-01-16 08:33 | PM.IMPN ---
Progress Note: A&P Assessment and Plan (1) Diverticulitis of intestine with abscess: Qualifiers: Diverticulitis bleeding: without bleeding Diverticulitis site: large intestine Qualified Code(s): K57.20 - Diverticulitis of large intestine with perforation and abscess without bleeding Code(s): K57.80 - Diverticulitis of intestine, part unspecified, with perforation and abscess without bleeding Status: Acute Assessment and Plan: 01/15/25 CT abd/pelvis showed 1. Acute sigmoid diverticulitis with diverticular abscess measuring 3 x 2 cm. 2: Nonobstructing bilateral nephrolithiasis. Started on empiric Ceftiraxone and Flagyl in the ED improving Surgery consulted NPO with ice chips Continue fluids (2) Acute pain: Code(s): R52 - Pain, unspecified Status: Acute Assessment and Plan: Change morphine to dilaudid 0.5 q3 prn for severe pain Add toradol 15 q6 prn for moderate pain Zofran prn for nausea (3) Hx of pancreatitis: Code(s): Z87.19 - Personal history of other diseases of the digestive system Status: Acute Assessment and Plan: No hx ETOH use Check lipid profile in AM, HgbA1c Subjective Date/time seen: 01/16/25 08:33 Interval history: Labs ok. VSS, BP above goal Surgery following [place] funny, too sleepy with morphine Still having low abdominal pain but improved Review of Systems Review of Systems: No fever + Chills Hard stools Exam Narrative: General - Awake and alert. No acute distress Eyes - PERRLA, EOM intact ENT - No thrush, No erythema Neck - No noticeable or palpable swelling Lymph Nodes - No lymphadenopathy Cardiovascular - RRR no m/r/g, no JVD Lungs: Clear to auscultation, No wheezing, use of accessory muscles, no crackles or wheezes. Skin - Skin warm and dry, no wounds or rashes Abdomen - Normal bowel sounds, abdomen soft and tender low abdomen Extremities - No edema, cyanosis or clubbing Musculoskeletal - 5/5 strength, normal range of motion, no swollen or erythematous joints. Neurological – Alert and oriented x 3, CN 2-12 grossly intact. Psych: Normal mood and affect Objective Data Vital Signs Vital Signs: Vital Signs - 24 hr 01/15/25 09:34 01/15/25 09:46 01/15/25 11:04 Temperature 98.3 F Pulse Rate 82 84 73 Respiratory Rate 18 20 18 Blood Pressure 164/94 H 152/97 H 146/92 H Pulse Oximetry 100 99 100 Oxygen Delivery Room Air 01/15/25 13:03 01/15/25 13:26 01/15/25 20:00 Temperature 98.5 F Pulse Rate 70 Respiratory Rate 16 Blood Pressure 157/89 H Pulse Oximetry 97 Oxygen Delivery Room Air Room Air 01/15/25 20:35 01/16/25 06:00 01/16/25 08:00 Temperature 97.6 F 97.4 F L Pulse Rate 74 69 Respiratory Rate 16 18 Blood Pressure 131/64 149/79 H Pulse Oximetry 96 98 Oxygen Delivery Room Air Intake/Output Intake/Output: Intake & Output 01/13/25 01/14/25 01/15/25 01/16/25 23:59 23:59 23:59 23:59 Intake Total 2150 1180 Output Total 750 Balance 2150 430 Meds/Results Medications: Active Medications Generic Name Dose Route Start Last Admin Trade Name Freq PRN Reason Stop Dose Admin Ceftriaxone Sodium 1 gm in 50 mls @ 100 mls/hr 01/16/25 12:00 Rocephin 1 Gm/Ns 50 Ml IVPB Q24H JENNY Metronidazole 500 mg in 100 mls @ 100 mls/hr 01/15/25 21:00 01/16/25 06:31 Flagyl 500 Mg/Iso Soln 100 Ml IVPB 100 mls/hr Q8HR JENNY Administration Sodium Chloride 1,000 mls @ 125 mls/hr 01/15/25 11:45 01/16/25 07:31 Normal Saline Iv IV CONT 125 mls/hr .Q8H JENNY Administration Morphine Sulfate 4 mg 01/15/25 11:45 01/15/25 19:45 Morphine Sulfate (*Crx) 4 Mg/Ml Inj IV PUSH 4 mg Q2H PRN Administration Pain Rated 7-10 Ondansetron HCl 4 mg 01/15/25 11:45 01/15/25 12:06 Ondansetron Inj 4 Mg/2 Ml Vial IV PUSH 4 mg Q4H PRN Administration Nausea Pantoprazole Sodium 40 mg 01/16/25 09:00 01/16/25 07:31 Pantoprazole Sodium Iv 40 Mg Vial IV PUSH 40 mg QAM JENNY Administration Radiology Results: ITS Impressions Abdomen/Pelvis CT 01/15/25 10:35 IMPRESSION: 1. Acute sigmoid diverticulitis with diverticular abscess measuring 3 x 2 cm. 2: Nonobstructing bilateral nephrolithiasis. Labs Labs: Laboratory Results - last 24 hr 01/15/25 01/15/25 01/15/25 09:51 10:41 11:34 WBC 10.7 H RBC 5.10 Hgb 16.2 Hct 46.0 MCV 90.2 MCH 31.8 MCHC 35.2 RDW 12.1 Plt Count 234 MPV 9.4 Immature Gran % (Auto) 0.7 H Neut % (Auto) 82.2 H Lymph % (Auto) 8.3 L [place] % (Auto) 7.9 Eos % (Auto) 0.4 Baso % (Auto) 0.5 Lymph # (Auto) 0.88 L [place] # (Auto) 0.8 H Eos # (Auto) 0.0 Baso # (Auto) 0.1 Abs Immat Gran (auto) 0.07 H Absolute Neuts (auto) 8.8 H Absolute Nucleated RBC 0.000 Nucleated RBC % 0.0 PT INR APTT Sodium 136 L Potassium 3.8 Chloride 102 Carbon Dioxide 20 L Anion Gap 14 H BUN 19 Creatinine 1.00 Estim Creat Clear Calc 71 Estimated GFR > 60 Glucose 147 H Hemoglobin A1c Lactic Acid 1.2 Calcium 9.3 Total Bilirubin 1.3 AST 36 ALT 29 Alkaline Phosphatase 74 Total Protein 8.0 Albumin 4.9 Triglycerides Cholesterol LDL Cholesterol Direct HDL Direct Lipase 76 Urine Color Yellow Urine Appearance Clear Urine pH 7.0 Ur Specific [place] > 1.045 H Urine Protein Trace Urine Glucose (UA) Negative Urine Ketones Trace H Ur Blood (Man) Negative Urine Nitrate Negative Urine Bilirubin Negative Urine Urobilinogen 1.0 Add Ur Microanalysis Reviewed Leukocyte Esterase Rfl Negative Urine RBC 0-2 Urine WBC 0-5 Ur Squamous Epith Cells None seen Urine Bacteria None seen Urine Casts 0-2 01/16/25 01/16/25 06:16 06:17 WBC 8.3 RBC 4.62 Hgb 14.8 Hct 41.9 L MCV 90.7 MCH 32.0 MCHC 35.3 RDW 12.1 Plt Count 200 MPV 8.9 Immature Gran % (Auto) 0.7 H Neut % (Auto) 76.8 H Lymph % (Auto) 11.8 L [place] % (Auto) 9.3 H Eos % (Auto) 1.0 Baso % (Auto) 0.4 Lymph # (Auto) 0.97 [place] # (Auto) 0.8 H Eos # (Auto) 0.1 Baso # (Auto) 0.0 Abs Immat Gran (auto) 0.06 H Absolute Neuts (auto) 6.3 Absolute Nucleated RBC 0.000 Nucleated RBC % 0.0 PT 14.5 INR 1.1 APTT 35.0 Sodium 136 L Potassium 3.9 Chloride 102 Carbon Dioxide 25 Anion Gap 9 BUN 17 Creatinine 0.93 Estim Creat Clear Calc 76 Estimated GFR > 60 Glucose 96 Hemoglobin A1c 4.9 Lactic Acid Calcium 8.6 Total Bilirubin 0.9 AST 33 ALT 23 Alkaline Phosphatase 60 Total Protein 7.0 Albumin 4.1 Triglycerides 108 Cholesterol 210 H LDL Cholesterol Direct 124 HDL Direct 42 Lipase Urine Color Urine Appearance Urine pH Ur Specific [place] Urine Protein Urine Glucose (UA) Urine Ketones Ur Blood (Man) Urine Nitrate Urine Bilirubin Urine Urobilinogen Add Ur Microanalysis Leukocyte Esterase Rfl Urine RBC Urine WBC Ur Squamous Epith Cells Urine Bacteria Urine Casts Quality VTE Prophylaxis VTE prophylaxis: mechanical ordered (Pharmacologic pending surgical eval) Hospitalist MIPS Advance Care Plan I have confirmed that the patient's Advanced Care Plan is present, code status is documented, or surrogate decision maker is listed in patient medical record.: Yes Medication Reconciliation I have utilized all available resources to obtain, update and review the patients current medications (includes all prescriptions, OTC, herbals, cannabis, and nutritional supplements).: Yes
--- NOTE | 2025-01-16 08:57 | PM.PNGS ---
Progress Note: A&P Assessment and Plan (1) Diverticulitis of intestine with abscess: Qualifiers: Diverticulitis bleeding: without bleeding Diverticulitis site: large intestine Qualified Code(s): K57.20 - Diverticulitis of large intestine with perforation and abscess without bleeding Code(s): K57.80 - Diverticulitis of intestine, part unspecified, with perforation and abscess without bleeding Status: Acute Assessment and Plan: Improving. Continue IV antibiotics and bowel rest with ice chips and sips. Subjective Subjective Date/Time Seen: 01/16/25 08:57 Patient reports: pain is less, voiding w/o difficulty, no bowel movement and afebrile Review of Systems Review of Systems: All systems reviewed & are unremarkable except as noted in HPI and below (HPI) Exam Const: General: comfortable, alert and awake GI: Inspection: no abdominal wall ecchymosis, no edema, non-distended and scaphoid GI Palp: Yes Soft to palpation, Yes Tenderness to palpation present (GI) and Yes Guarding due to palpation present (GI) Percussion: Yes tympanic to percussion (Still some left suprapubic tenderness and mild guarding) Objective Data Vital Signs Vital Signs: Vital Signs - 24 hr 01/15/25 09:34 01/15/25 09:46 01/15/25 11:04 Temperature 36.8 C Pulse Rate 82 84 73 Respiratory Rate 18 20 18 Blood Pressure 164/94 H 152/97 H 146/92 H Pulse Oximetry 100 99 100 Oxygen Delivery Room Air 01/15/25 13:03 01/15/25 13:26 01/15/25 20:00 Temperature 36.9 C Pulse Rate 70 Respiratory Rate 16 Blood Pressure 157/89 H Pulse Oximetry 97 Oxygen Delivery Room Air Room Air 01/15/25 20:35 01/16/25 06:00 01/16/25 08:00 Temperature 36.4 C 36.3 C L Pulse Rate 74 69 Respiratory Rate 16 18 Blood Pressure 131/64 149/79 H Pulse Oximetry 96 98 Oxygen Delivery Room Air Intake/Output Intake/Output: Intake & Output 01/13/25 01/14/25 01/15/25 01/16/25 23:59 23:59 23:59 23:59 Intake Total 2150 1180 Output Total 750 Balance 2150 430 Meds/Results Medications: Active Medications Generic Name Dose Route Start Last Admin Trade Name Freq PRN Reason Stop Dose Admin Ceftriaxone Sodium 1 gm in 50 mls @ 100 mls/hr 01/16/25 12:00 Rocephin 1 Gm/Ns 50 Ml IVPB Q24H JENNY Metronidazole 500 mg in 100 mls @ 100 mls/hr 01/15/25 21:00 01/16/25 06:31 Flagyl 500 Mg/Iso Soln 100 Ml IVPB 100 mls/hr Q8HR JENNY Administration Sodium Chloride 1,000 mls @ 125 mls/hr 01/15/25 11:45 01/16/25 07:31 Normal Saline Iv IV CONT 125 mls/hr .Q8H JENNY Administration Morphine Sulfate 4 mg 01/15/25 11:45 01/15/25 19:45 Morphine Sulfate (*Crx) 4 Mg/Ml Inj IV PUSH 4 mg Q2H PRN Administration Pain Rated 7-10 Ondansetron HCl 4 mg 01/15/25 11:45 01/15/25 12:06 Ondansetron Inj 4 Mg/2 Ml Vial IV PUSH 4 mg Q4H PRN Administration Nausea Pantoprazole Sodium 40 mg 01/16/25 09:00 01/16/25 07:31 Pantoprazole Sodium Iv 40 Mg Vial IV PUSH 40 mg QAM JENNY Administration Radiology Results: ITS Impressions Abdomen/Pelvis CT 01/15/25 10:35 IMPRESSION: 1. Acute sigmoid diverticulitis with diverticular abscess measuring 3 x 2 cm. 2: Nonobstructing bilateral nephrolithiasis. Labs Labs: Laboratory Results - last 24 hr 01/15/25 01/15/25 01/15/25 09:51 10:41 11:34 WBC 10.7 H RBC 5.10 Hgb 16.2 Hct 46.0 MCV 90.2 MCH 31.8 MCHC 35.2 RDW 12.1 Plt Count 234 MPV 9.4 Immature Gran % (Auto) 0.7 H Neut % (Auto) 82.2 H Lymph % (Auto) 8.3 L [place] % (Auto) 7.9 Eos % (Auto) 0.4 Baso % (Auto) 0.5 Lymph # (Auto) 0.88 L [place] # (Auto) 0.8 H Eos # (Auto) 0.0 Baso # (Auto) 0.1 Abs Immat Gran (auto) 0.07 H Absolute Neuts (auto) 8.8 H Absolute Nucleated RBC 0.000 Nucleated RBC % 0.0 PT INR APTT Sodium 136 L Potassium 3.8 Chloride 102 Carbon Dioxide 20 L Anion Gap 14 H BUN 19 Creatinine 1.00 Estim Creat Clear Calc 71 Estimated GFR > 60 Glucose 147 H Hemoglobin A1c Lactic Acid 1.2 Calcium 9.3 Total Bilirubin 1.3 AST 36 ALT 29 Alkaline Phosphatase 74 Total Protein 8.0 Albumin 4.9 Triglycerides Cholesterol LDL Cholesterol Direct HDL Direct Lipase 76 Urine Color Yellow Urine Appearance Clear Urine pH 7.0 Ur Specific [place] > 1.045 H Urine Protein Trace Urine Glucose (UA) Negative Urine Ketones Trace H Ur Blood (Man) Negative Urine Nitrate Negative Urine Bilirubin Negative Urine Urobilinogen 1.0 Add Ur Microanalysis Reviewed Leukocyte Esterase Rfl Negative Urine RBC 0-2 Urine WBC 0-5 Ur Squamous Epith Cells None seen Urine Bacteria None seen Urine Casts 0-2 01/16/25 01/16/25 06:16 06:17 WBC 8.3 RBC 4.62 Hgb 14.8 Hct 41.9 L MCV 90.7 MCH 32.0 MCHC 35.3 RDW 12.1 Plt Count 200 MPV 8.9 Immature Gran % (Auto) 0.7 H Neut % (Auto) 76.8 H Lymph % (Auto) 11.8 L [place] % (Auto) 9.3 H Eos % (Auto) 1.0 Baso % (Auto) 0.4 Lymph # (Auto) 0.97 [place] # (Auto) 0.8 H Eos # (Auto) 0.1 Baso # (Auto) 0.0 Abs Immat Gran (auto) 0.06 H Absolute Neuts (auto) 6.3 Absolute Nucleated RBC 0.000 Nucleated RBC % 0.0 PT 14.5 INR 1.1 APTT 35.0 Sodium 136 L Potassium 3.9 Chloride 102 Carbon Dioxide 25 Anion Gap 9 BUN 17 Creatinine 0.93 Estim Creat Clear Calc 76 Estimated GFR > 60 Glucose 96 Hemoglobin A1c 4.9 Lactic Acid Calcium 8.6 Total Bilirubin 0.9 AST 33 ALT 23 Alkaline Phosphatase 60 Total Protein 7.0 Albumin 4.1 Triglycerides 108 Cholesterol 210 H LDL Cholesterol Direct 124 HDL Direct 42 Lipase Urine Color Urine Appearance Urine pH Ur Specific [place] Urine Protein Urine Glucose (UA) Urine Ketones Ur Blood (Man) Urine Nitrate Urine Bilirubin Urine Urobilinogen Add Ur Microanalysis Leukocyte Esterase Rfl Urine RBC Urine WBC Ur Squamous Epith Cells Urine Bacteria Urine Casts
[2025-01-16 12:48] VITALS: BMI 29.3
[2025-01-16 13:57] VITALS: BP 166/82; PULSE 75; RESP 18; TEMP 36.6; O2SAT 97
[2025-01-16] MEDS: HYDROmorphone HCL INJ (*CRX) 2 MG/ML VIAL 0.5 MG IV PUSH (16:23)
[2025-01-16] MEDS: ONDANSETRON INJ 4 MG/2 ML VIAL IV PUSH ×2 (18:20→22:11)
[2025-01-16 20:00] VITALS: PULSE 75; RESP 18; O2SAT 97
[2025-01-16 20:50] VITALS: BP 144/84; PULSE 71; RESP 18; TEMP 36.4; O2SAT 98
[2025-01-16] MEDS: KETOROLAC 15 MG/ML VIAL (*BKC) IV PUSH (22:11)
[2025-01-17] MEDS: SODIUM CHLORIDE 0.9% IV 1,000 ML 125 ML IV CONT (02:30)
[2025-01-17 05:10] VITALS: BP 124/59; PULSE 64; RESP 18; TEMP 36.4; O2SAT 98
[2025-01-17] MEDS: metroNIDAZOLE 500 MG/ISO 100ML 500 MG/100 ML BAG 100 MG IVPB ×3 (05:39→22:25)
[2025-01-17 07:20] LABS: Basophils Percent Auto 0.6 % (0.2-1.2); Eosinophils Absolute Auto 0.1 K/mm3 (0-0.3); Eosinophils Percent Auto 1.7 % (0-4.4); Hematocrit 40.2 % (42.0-52.0); Hemoglobin 13.9 g/dL (14.0-18.0); Immature Granulocyte Absolute 0.07 K/mm3 (0.00-0.031); Immature Granulocyte Percent A 1.5 % (0-0.5); Lymphocytes Percent Auto 14.5 % (18.3-44.2); Mean Corpuscular HGB Conc 34.6 g/dl (32-36); Mean Corpuscular Hemoglobin 31.7 pg (26-34); Mean Corpuscular Volume 91.8 fl (80-100); Mean Platelet Volume 9.3 fl (7.4-10.4); Monocytes Absolute Auto 0.6 K/mm3 (0.1-0.6); Monocytes Percent Auto 12.2 % (2.6-8.5); Neutrophils Absolute Auto 3.4 K/mm3 (1.3-6.7); Neutrophils Percent Auto 69.5 % (45.5-73.1); Platelet Count Result 184 k/mm3 (150-375); Red Blood Count 4.38 M/mm3 (4.6-6.20); Red Cell Distribution Width 12.1 % (11.5-14.5); White Blood Count 4.8 K/mm3 (4.5-10.0)
[2025-01-17 07:31] LABS: Anion Gap 11 mmol/L (4-12); Blood Urea Nitrogen 19 mg/dL (9-20); Calcium 8.5 mg/dL (8.4-10.2); Carbon Dioxide 23 mmol/L (22-30); Chloride 105 mmol/L (98-107); Estimated CRCL calculation 82 ml/min; Estimated Glomerular Filt Rate > 60; Glucose 83 mg/dL (65-110); Potassium 3.5 mmol/L (3.4-5.0); Sodium 139 mmol/L (137-145)
--- NOTE | 2025-01-17 07:32 | P.PNGS_ITS ---
Progress Note: A&P Assessment and Plan (1) Diverticulitis of intestine with abscess: Qualifiers: Diverticulitis bleeding: without bleeding Diverticulitis site: large intestine Qualified Code(s): K57.20 - Diverticulitis of large intestine with perforation and abscess without bleeding Code(s): K57.80 - Diverticulitis of intestine, part unspecified, with perforation and abscess without bleeding Status: Acute Assessment and Plan: Improved. Continue IV antibiotics. Will start full liquids. Subjective Subjective Date/Time Seen: 01/17/25 07:32 Patient reports: feels better, pain is less and afebrile Review of Systems Review of Systems: All systems reviewed & are unremarkable except as noted in HPI and below (HPI) Exam Const: General: comfortable and awake GI: Inspection: normal to inspection, non-distended and scaphoid GI Palp: Yes Soft to palpation and Yes Tenderness to palpation present (GI) (Minimal suprapubic tenderness, no guarding) Objective Data Vital Signs Vital Signs: Vital Signs - 24 hr 01/16/25 08:00 01/16/25 13:57 01/16/25 20:00 Temperature 36.6 C Pulse Rate 75 75 Respiratory Rate 18 18 Blood Pressure 166/82 H Pulse Oximetry 97 97 Oxygen Delivery Room Air Room Air 01/16/25 20:50 01/17/25 05:10 Temperature 36.4 C L 36.4 C Pulse Rate 71 64 Respiratory Rate 18 18 Blood Pressure 144/84 H 124/59 L Pulse Oximetry 98 98 Oxygen Delivery Intake/Output Intake/Output: Intake & Output 01/14/25 01/15/25 01/16/25 01/17/25 23:59 23:59 23:59 23:59 Intake Total 2150 2530 1080 Output Total 750 750 Balance 2150 1780 330 Meds/Results Medications: Active Medications Generic Name Dose Route Start Last Admin Trade Name Freq PRN Reason Stop Dose Admin Ceftriaxone Sodium 1 gm in 50 mls @ 100 mls/hr 01/16/25 12:00 01/16/25 12:38 Rocephin 1 Gm/Ns 50 Ml IVPB Infused Q24H JENNY Infusion Metronidazole 500 mg in 100 mls @ 100 mls/hr 01/15/25 21:00 01/17/25 05:39 Flagyl 500 Mg/Iso Soln 100 Ml IVPB 100 mls/hr Q8HR JENNY Administration Sodium Chloride 1,000 mls @ 125 mls/hr 01/15/25 11:45 01/17/25 02:30 Normal Saline Iv IV CONT 125 mls/hr .Q8H JENNY Administration Ketorolac Tromethamine 15 mg 01/16/25 12:17 01/16/25 22:11 Ketorolac 15 Mg/Ml Vial (*Bkc) IV PUSH 15 mg Q6H PRN Administration Pain Rated 4-6 Ondansetron HCl 4 mg 01/15/25 11:45 01/16/25 22:11 Ondansetron Inj 4 Mg/2 Ml Vial IV PUSH 4 mg Q4H PRN Administration Nausea Radiology Results: ITS Impressions Abdomen/Pelvis CT 01/15/25 10:35 IMPRESSION: 1. Acute sigmoid diverticulitis with diverticular abscess measuring 3 x 2 cm. 2: Nonobstructing bilateral nephrolithiasis. Labs Labs: Laboratory Results - last 24 hr 01/17/25 06:42 WBC 4.8 RBC 4.38 L Hgb 13.9 L Hct 40.2 L MCV 91.8 MCH 31.7 MCHC 34.6 RDW 12.1 Plt Count 184 MPV 9.3 Immature Gran % (Auto) 1.5 H Neut % (Auto) 69.5 Lymph % (Auto) 14.5 L [place] % (Auto) 12.2 H Eos % (Auto) 1.7 Baso % (Auto) 0.6 Lymph # (Auto) 0.70 L [place] # (Auto) 0.6 Eos # (Auto) 0.1 Baso # (Auto) 0.0 Abs Immat Gran (auto) 0.07 H Absolute Neuts (auto) 3.4 Absolute Nucleated RBC 0.000 Nucleated RBC % 0.0 Sodium 139 Potassium 3.5 Chloride 105 Carbon Dioxide 23 Anion Gap 11 BUN 19 Creatinine 0.86 Estim Creat Clear Calc 82 Estimated GFR > 60 Glucose 83 Calcium 8.5 Magnesium 2.0
[2025-01-17] MEDS: PANTOPRAZOLE 40 MG TABLET PO (07:59)
[2025-01-17] MEDS: ENOXAPARIN 40 MG/0.4 ML SYRINGE SUB-Q (07:59)
--- NOTE | 2025-01-17 13:57 | P.PNIM_ITS ---
Progress Note: A&P Assessment and Plan (1) Diverticulitis of intestine with abscess: Qualifiers: Diverticulitis bleeding: without bleeding Diverticulitis site: large intestine Qualified Code(s): K57.20 - Diverticulitis of large intestine with perforation and abscess without bleeding Code(s): K57.80 - Diverticulitis of intestine, part unspecified, with perforation and abscess without bleeding Status: Acute Assessment and Plan: 01/15/25 CT abd/pelvis showed 1. Acute sigmoid diverticulitis with diverticular abscess measuring 3 x 2 cm. 2: Nonobstructing bilateral nephrolithiasis. Continue Rocephin and Flagyl On full liquid diet Surgery on board (2) Acute pain: Code(s): R52 - Pain, unspecified Status: Acute Assessment and Plan: Change morphine to dilaudid 0.5 q3 prn for severe pain Add toradol 15 q6 prn for moderate pain Zofran prn for nausea (3) Hx of pancreatitis: Code(s): Z87.19 - Personal history of other diseases of the digestive system Status: Acute Assessment and Plan: No hx ETOH use Check lipid profile in AM, HgbA1c Plan DVT prophylaxis on Sq Lovenox Subjective Date/time seen: 01/17/25 13:57 Interval history: Comfortable at bedside on full liquid diet Review of Systems Review of Systems: No fever + Chills Hard stools Exam Narrative: General - Awake and alert. No acute distress Eyes - PERRLA, EOM intact ENT - No thrush, No erythema Neck - No noticeable or palpable swelling Lymph Nodes - No lymphadenopathy Cardiovascular - RRR no m/r/g, no JVD Lungs: Clear to auscultation, No wheezing, use of accessory muscles, no crackles or wheezes. Skin - Skin warm and dry, no wounds or rashes Abdomen - Normal bowel sounds, abdomen soft and tender low abdomen Extremities - No edema, cyanosis or clubbing Musculoskeletal - 5/5 strength, normal range of motion, no swollen or erythematous joints. Neurological – Alert and oriented x 3, CN 2-12 grossly intact. Psych: Normal mood and affect Objective Data Vital Signs Vital Signs: Vital Signs - 24 hr 01/16/25 20:00 01/16/25 20:50 01/17/25 05:10 Temperature 97.5 F L 97.6 F Pulse Rate 75 71 64 Respiratory Rate 18 18 18 Blood Pressure 144/84 H 124/59 L Pulse Oximetry 97 98 98 Oxygen Delivery Room Air 01/17/25 08:00 Temperature Pulse Rate Respiratory Rate Blood Pressure Pulse Oximetry Oxygen Delivery Room Air Intake/Output Intake/Output: Intake & Output 01/14/25 01/15/25 01/16/25 01/17/25 23:59 23:59 23:59 23:59 Intake Total 2150 2530 1470 Output Total 750 750 Balance 2150 1780 720 Meds/Results Medications: Active Medications Generic Name Dose Route Start Last Admin Trade Name Freq PRN Reason Stop Dose Admin Enoxaparin Sodium 40 mg 01/17/25 09:00 01/17/25 07:59 Enoxaparin 40 Mg/0.4 Ml Syringe SUB-Q 40 mg DAILY JENNY Administration Ceftriaxone Sodium 1 gm in 50 mls @ 100 mls/hr 01/16/25 12:00 01/17/25 11:42 Rocephin 1 Gm/Ns 50 Ml IVPB Infused Q24H JENNY Infusion Metronidazole 500 mg in 100 mls @ 100 mls/hr 01/15/25 21:00 01/17/25 13:55 Flagyl 500 Mg/Iso Soln 100 Ml IVPB 100 mls/hr Q8HR JENNY Administration Ketorolac Tromethamine 10 mg 01/17/25 07:30 Ketorolac 10 Mg Tablet PO Q6H PRN Pain Rated 4-6 Ondansetron HCl 4 mg 01/15/25 11:45 01/16/25 22:11 Ondansetron Inj 4 Mg/2 Ml Vial IV PUSH 4 mg Q4H PRN Administration Nausea Oxycodone/Acetaminophen 1 tablet 01/17/25 07:30 Oxycodone/Acetaminophen (*Crx) 5-325 Mg Tablet PO Q4H PRN Pain Rated 7-10 Pantoprazole Sodium 40 mg 01/17/25 09:00 01/17/25 07:59 Pantoprazole 40 Mg Tablet PO 40 mg QAM JENNY Administration Radiology Results: ITS Impressions Abdomen/Pelvis CT 01/15/25 10:35 IMPRESSION: 1. Acute sigmoid diverticulitis with diverticular abscess measuring 3 x 2 cm. 2: Nonobstructing bilateral nephrolithiasis. Labs Labs: Laboratory Results - last 24 hr 01/17/25 06:42 WBC 4.8 RBC 4.38 L Hgb 13.9 L Hct 40.2 L MCV 91.8 MCH 31.7 MCHC 34.6 RDW 12.1 Plt Count 184 MPV 9.3 Immature Gran % (Auto) 1.5 H Neut % (Auto) 69.5 Lymph % (Auto) 14.5 L [place] % (Auto) 12.2 H Eos % (Auto) 1.7 Baso % (Auto) 0.6 Lymph # (Auto) 0.70 L [place] # (Auto) 0.6 Eos # (Auto) 0.1 Baso # (Auto) 0.0 Abs Immat Gran (auto) 0.07 H Absolute Neuts (auto) 3.4 Absolute Nucleated RBC 0.000 Nucleated RBC % 0.0 Sodium 139 Potassium 3.5 Chloride 105 Carbon Dioxide 23 Anion Gap 11 BUN 19 Creatinine 0.86 Estim Creat Clear Calc 82 Estimated GFR > 60 Glucose 83 Calcium 8.5 Magnesium 2.0 Quality VTE Prophylaxis VTE prophylaxis: mechanical ordered (Pharmacologic pending surgical eval)
[2025-01-17 14:00] VITALS: BP 155/93; PULSE 72; RESP 18; TEMP 37; O2SAT 98
[2025-01-17 20:00] VITALS: PULSE 72; RESP 18; O2SAT 98
[2025-01-17 21:30] VITALS: BP 143/84; PULSE 55; RESP 20; TEMP 36.5; O2SAT 100
[2025-01-18 04:45] VITALS: BP 143/86; PULSE 67; RESP 18; TEMP 36.3; O2SAT 100
[2025-01-18] MEDS: metroNIDAZOLE 500 MG/ISO 100ML 500 MG/100 ML BAG 100 MG IVPB ×2 (05:32→13:19)
[2025-01-18 05:59] LABS: Basophils Percent Auto 0.9 % (0.2-1.2); Eosinophils Absolute Auto 0.1 K/mm3 (0-0.3); Eosinophils Percent Auto 2.4 % (0-4.4); Hematocrit 40.6 % (42.0-52.0); Hemoglobin 14.1 g/dL (14.0-18.0); Immature Granulocyte Absolute 0.06 K/mm3 (0.00-0.031); Immature Granulocyte Percent A 1.3 % (0-0.5); Lymphocytes Absolute Auto 1.04 K/mm3 (0.9-3.2); Lymphocytes Percent Auto 22.3 % (18.3-44.2); Mean Corpuscular HGB Conc 34.7 g/dl (32-36); Mean Corpuscular Hemoglobin 31.4 pg (26-34); Mean Corpuscular Volume 90.4 fl (80-100); Mean Platelet Volume 9.2 fl (7.4-10.4); Monocytes Absolute Auto 0.7 K/mm3 (0.1-0.6); Neutrophils Absolute Auto 2.7 K/mm3 (1.3-6.7); Neutrophils Percent Auto 58.1 % (45.5-73.1); Platelet Count Result 202 k/mm3 (150-375); Red Blood Count 4.49 M/mm3 (4.6-6.20); Red Cell Distribution Width 12.1 % (11.5-14.5); White Blood Count 4.7 K/mm3 (4.5-10.0)
[2025-01-18 06:17] LABS: Alanine Aminotransferase 38 U/L (6-50); Albumin Level 3.9 g/dL (3.5-5.1); Alkaline Phosphatase 46 U/L (38-126); Anion Gap 7 mmol/L (4-12); Aspartate Amino Transferase 56 U/L (17-59); Bilirubin,Total 0.5 mg/dL (0.2-1.3); Blood Urea Nitrogen 13 mg/dL (9-20); Calcium 8.6 mg/dL (8.4-10.2); Carbon Dioxide 27 mmol/L (22-30); Chloride 103 mmol/L (98-107); Estimated CRCL calculation 83 ml/min; Estimated Glomerular Filt Rate > 60; Glucose 122 mg/dL (65-110); Magnesium 1.9 mg/dL (1.6-2.3); Potassium 3.4 mmol/L (3.4-5.0); Sodium 137 mmol/L (137-145)
[2025-01-18 08:00] VITALS: O2SAT 100
[2025-01-18] MEDS: PANTOPRAZOLE 40 MG TABLET PO (08:39)
[2025-01-18] MEDS: ENOXAPARIN 40 MG/0.4 ML SYRINGE SUB-Q (08:39)
--- NOTE | 2025-01-18 10:24 | PM.IMPN ---
Progress Note: A&P Assessment and Plan (1) Diverticulitis of intestine with abscess: Qualifiers: Diverticulitis bleeding: without bleeding Diverticulitis site: large intestine Qualified Code(s): K57.20 - Diverticulitis of large intestine with perforation and abscess without bleeding Code(s): K57.80 - Diverticulitis of intestine, part unspecified, with perforation and abscess without bleeding Status: Acute Assessment and Plan: 01/15/25 CT abd/pelvis showed 1. Acute sigmoid diverticulitis with diverticular abscess measuring 3 x 2 cm. 2: Nonobstructing bilateral nephrolithiasis. Continue Rocephin and Flagyl Tolerating full liquid diet, try low fiber diet today Surgery on board (2) Acute pain: Code(s): R52 - Pain, unspecified Status: Acute Assessment and Plan: Change morphine to dilaudid 0.5 q3 prn for severe pain Add toradol 15 q6 prn for moderate pain Zofran prn for nausea (3) Hx of pancreatitis: Code(s): Z87.19 - Personal history of other diseases of the digestive system Status: Acute Assessment and Plan: No hx ETOH use Check lipid profile in AM, HgbA1c Plan DVT prophylaxis on Sq Lovenox Subjective Date/time seen: 01/18/25 10:24 Interval history: Comfortable at bedside Tolerating full liquid diet Will try low fiber diet Review of Systems Review of Systems: No fever + Chills Hard stools Exam Narrative: General - Awake and alert. No acute distress Eyes - PERRLA, EOM intact ENT - No thrush, No erythema Neck - No noticeable or palpable swelling Lymph Nodes - No lymphadenopathy Cardiovascular - RRR no m/r/g, no JVD Lungs: Clear to auscultation, No wheezing, use of accessory muscles, no crackles or wheezes. Skin - Skin warm and dry, no wounds or rashes Abdomen - Normal bowel sounds, abdomen soft and tender low abdomen Extremities - No edema, cyanosis or clubbing Musculoskeletal - 5/5 strength, normal range of motion, no swollen or erythematous joints. Neurological – Alert and oriented x 3, CN 2-12 grossly intact. Psych: Normal mood and affect Objective Data Vital Signs Vital Signs: Vital Signs - 24 hr 01/17/25 14:00 01/17/25 20:00 01/17/25 20:00 Temperature 98.6 F Pulse Rate 72 72 Respiratory Rate 18 18 Blood Pressure 155/93 H Pulse Oximetry 98 98 98 Oxygen Delivery Room Air Room Air 01/17/25 21:30 01/18/25 04:45 Temperature 97.7 F 97.4 F L Pulse Rate 55 L 67 Respiratory Rate 20 18 Blood Pressure 143/84 H 143/86 H Pulse Oximetry 100 100 Oxygen Delivery Intake/Output Intake/Output: Intake & Output 01/15/25 01/16/25 01/17/25 01/18/25 23:59 23:59 23:59 23:59 Intake Total 2150 2530 2460 710 Output Total 750 750 Balance 2150 1780 1710 710 Meds/Results Medications: Active Medications Generic Name Dose Route Start Last Admin Trade Name Freq PRN Reason Stop Dose Admin Enoxaparin Sodium 40 mg 01/17/25 09:00 01/18/25 08:39 Enoxaparin 40 Mg/0.4 Ml Syringe SUB-Q 40 mg DAILY JENNY Administration Ceftriaxone Sodium 1 gm in 50 mls @ 100 mls/hr 01/16/25 12:00 01/17/25 11:42 Rocephin 1 Gm/Ns 50 Ml IVPB Infused Q24H JENNY Infusion Metronidazole 500 mg in 100 mls @ 100 mls/hr 01/15/25 21:00 01/18/25 06:34 Flagyl 500 Mg/Iso Soln 100 Ml IVPB Infused Q8HR JENNY Infusion Ketorolac Tromethamine 10 mg 01/17/25 07:30 Ketorolac 10 Mg Tablet PO Q6H PRN Pain Rated 4-6 Ondansetron HCl 4 mg 01/15/25 11:45 01/16/25 22:11 Ondansetron Inj 4 Mg/2 Ml Vial IV PUSH 4 mg Q4H PRN Administration Nausea Oxycodone/Acetaminophen 1 tablet 01/17/25 07:30 Oxycodone/Acetaminophen (*Crx) 5-325 Mg Tablet PO Q4H PRN Pain Rated 7-10 Pantoprazole Sodium 40 mg 01/17/25 09:00 01/18/25 08:39 Pantoprazole 40 Mg Tablet PO 40 mg QAM JENNY Administration Radiology Results: ITS Impressions Abdomen/Pelvis CT 01/15/25 10:35 IMPRESSION: 1. Acute sigmoid diverticulitis with diverticular abscess measuring 3 x 2 cm. 2: Nonobstructing bilateral nephrolithiasis. Labs Labs: Laboratory Results - last 24 hr 01/18/25 05:50 WBC 4.7 RBC 4.49 L Hgb 14.1 Hct 40.6 L MCV 90.4 MCH 31.4 MCHC 34.7 RDW 12.1 Plt Count 202 MPV 9.2 Immature Gran % (Auto) 1.3 H Neut % (Auto) 58.1 Lymph % (Auto) 22.3 [place] % (Auto) 15.0 H Eos % (Auto) 2.4 Baso % (Auto) 0.9 Lymph # (Auto) 1.04 [place] # (Auto) 0.7 H Eos # (Auto) 0.1 Baso # (Auto) 0.0 Abs Immat Gran (auto) 0.06 H Absolute Neuts (auto) 2.7 Absolute Nucleated RBC 0.000 Nucleated RBC % 0.0 Sodium 137 Potassium 3.4 Chloride 103 Carbon Dioxide 27 Anion Gap 7 BUN 13 D Creatinine 0.85 Estim Creat Clear Calc 83 Estimated GFR > 60 Glucose 122 H Calcium 8.6 Magnesium 1.9 Total Bilirubin 0.5 AST 56 ALT 38 Alkaline Phosphatase 46 Total Protein 7.0 Albumin 3.9 Quality VTE Prophylaxis VTE prophylaxis: mechanical ordered (Pharmacologic pending surgical eval)
--- NOTE | 2025-01-18 12:29 | PM.PNGS ---
Progress Note: A&P Assessment and Plan (1) Diverticulitis of intestine with abscess: Qualifiers: Diverticulitis bleeding: without bleeding Diverticulitis site: large intestine Qualified Code(s): K57.20 - Diverticulitis of large intestine with perforation and abscess without bleeding Code(s): K57.80 - Diverticulitis of intestine, part unspecified, with perforation and abscess without bleeding Status: Acute Assessment and Plan: Doing very well. Advanced to low-fiber diet. Okay to be discharged this afternoon on low-fiber diet. I explained this diet to the patient and his . I sent paper prescriptions to the nursing desk for 5 days of Levaquin and 5 days of metronidazole. I will see him in the office in 2 weeks. This is is 1st episode of diverticulitis. I do not anticipate him needing any surgery unless he has recurrences in the future. (2) Hx of pancreatitis: Code(s): Z87.19 - Personal history of other diseases of the digestive system Status: Chronic Subjective Subjective Date/Time Seen: 01/18/25 12:29 Patient reports: no new complaints, feels better, pain is less (No pain at all yesterday or last night.), voiding w/o difficulty, bowel movement and afebrile Review of Systems Review of Systems: All systems reviewed & are unremarkable except as noted in HPI and below (HPI) Exam Const: General: comfortable, alert and awake GI: Inspection: normal to inspection and scaphoid GI Palp: Yes Soft to palpation and No Tenderness to palpation present (GI) Objective Data Vital Signs Vital Signs: Vital Signs - 24 hr 01/17/25 14:00 01/17/25 20:00 01/17/25 20:00 Temperature 37.0 C Pulse Rate 72 72 Respiratory Rate 18 18 Blood Pressure 155/93 H Pulse Oximetry 98 98 98 Oxygen Delivery Room Air Room Air 01/17/25 21:30 01/18/25 04:45 01/18/25 08:00 Temperature 36.5 C 36.3 C L Pulse Rate 55 L 67 Respiratory Rate 20 18 Blood Pressure 143/84 H 143/86 H Pulse Oximetry 100 100 100 Oxygen Delivery Room Air Intake/Output Intake/Output: Intake & Output 01/15/25 01/16/25 01/17/25 01/18/25 23:59 23:59 23:59 23:59 Intake Total 8400 0030 3160 710 Output Total 750 750 Balance 2150 1780 1710 710 Meds/Results Medications: Active Medications Generic Name Dose Route Start Last Admin Trade Name Freq PRN Reason Stop Dose Admin Enoxaparin Sodium 40 mg 01/17/25 09:00 01/18/25 08:39 Enoxaparin 40 Mg/0.4 Ml Syringe SUB-Q 40 mg DAILY JENNY Administration Ceftriaxone Sodium 1 gm in 50 mls @ 100 mls/hr 01/16/25 12:00 01/17/25 11:42 Rocephin 1 Gm/Ns 50 Ml IVPB Infused Q24H JENNY Infusion Metronidazole 500 mg in 100 mls @ 100 mls/hr 01/15/25 21:00 01/18/25 06:34 Flagyl 500 Mg/Iso Soln 100 Ml IVPB Infused Q8HR JENNY Infusion Ketorolac Tromethamine 10 mg 01/17/25 07:30 Ketorolac 10 Mg Tablet PO Q6H PRN Pain Rated 4-6 Ondansetron HCl 4 mg 01/15/25 11:45 01/16/25 22:11 Ondansetron Inj 4 Mg/2 Ml Vial IV PUSH 4 mg Q4H PRN Administration Nausea Oxycodone/Acetaminophen 1 tablet 01/17/25 07:30 Oxycodone/Acetaminophen (*Crx) 5-325 Mg Tablet PO Q4H PRN Pain Rated 7-10 Pantoprazole Sodium 40 mg 01/17/25 09:00 01/18/25 08:39 Pantoprazole 40 Mg Tablet PO 40 mg QAM JENNY Administration Radiology Results: ITS Impressions Abdomen/Pelvis CT 01/15/25 10:35 IMPRESSION: 1. Acute sigmoid diverticulitis with diverticular abscess measuring 3 x 2 cm. 2: Nonobstructing bilateral nephrolithiasis. Labs Labs: Laboratory Results - last 24 hr 01/18/25 05:50 WBC 4.7 RBC 4.49 L Hgb 14.1 Hct 40.6 L MCV 90.4 MCH 31.4 MCHC 34.7 RDW 12.1 Plt Count 202 MPV 9.2 Immature Gran % (Auto) 1.3 H Neut % (Auto) 58.1 Lymph % (Auto) 22.3 [place] % (Auto) 15.0 H Eos % (Auto) 2.4 Baso % (Auto) 0.9 Lymph # (Auto) 1.04 [place] # (Auto) 0.7 H Eos # (Auto) 0.1 Baso # (Auto) 0.0 Abs Immat Gran (auto) 0.06 H Absolute Neuts (auto) 2.7 Absolute Nucleated RBC 0.000 Nucleated RBC % 0.0 Sodium 137 Potassium 3.4 Chloride 103 Carbon Dioxide 27 Anion Gap 7 BUN 13 D Creatinine 0.85 Estim Creat Clear Calc 83 Estimated GFR > 60 Glucose 122 H Calcium 8.6 Magnesium 1.9 Total Bilirubin 0.5 AST 56 ALT 38 Alkaline Phosphatase 46 Total Protein 7.0 Albumin 3.9
[2025-01-18] MEDS: ONDANSETRON INJ 4 MG/2 ML VIAL IV PUSH (13:19)
[2025-01-18 13:40] VITALS: BP 135/81; PULSE 70; RESP 16; TEMP 36.5; O2SAT 97
--- NOTE | 2025-01-18 14:57 | P.DS_ITS ---
DS: Admitting Diagnosis Discharge Date 01/18/25 Admitting Diagnosis Abdominal pain DS: Discharge Diagnosis Discharge Diagnosis (1) Diverticulitis of intestine with abscess: Qualifiers: Diverticulitis bleeding: without bleeding Diverticulitis site: large intestine Qualified Code(s): K57.20 - Diverticulitis of large intestine with perforation and abscess without bleeding Code(s): K57.80 - Diverticulitis of intestine, part unspecified, with perforation and abscess without bleeding Status: Acute DS: Summary Hospital Course Hospital Course: Jamaal Pugh is a 54 year old man hx pancreatitis, who presented for nausea and abdominal pain and was admitted for treatment of a diverticular abscess. He reports intermittent low abdominal pain for several weeks. For the last few days he's had severe sharp stabbing pain and nausea, no vomiting, so presented to the ED. CT AP showed acute sigmoid diverticulitis with diverticular abscess Surgery consulted, and started on IV Abx Today patient tolerating low fiber diet, surgery was evaluated and recommended oral abx and outpatient follow up F/u with PCP in 3-5 days F/u with gen surgery as instructed. Time Spent with Patient Time attestation: Total time spent providing and/or coordinating discharge services: DS: Data Data Completed and Pending Labs on day of discharge: Labs from last 24 hours 01/18/25 05:50 WBC 4.7 RBC 4.49 L Hgb 14.1 Hct 40.6 L MCV 90.4 MCH 31.4 MCHC 34.7 RDW 12.1 Plt Count 202 MPV 9.2 Immature Gran % (Auto) 1.3 H Neut % (Auto) 58.1 Lymph % (Auto) 22.3 [place] % (Auto) 15.0 H Eos % (Auto) 2.4 Baso % (Auto) 0.9 Lymph # (Auto) 1.04 [place] # (Auto) 0.7 H Eos # (Auto) 0.1 Baso # (Auto) 0.0 Abs Immat Gran (auto) 0.06 H Absolute Neuts (auto) 2.7 Absolute Nucleated RBC 0.000 Nucleated RBC % 0.0 Sodium 137 Potassium 3.4 Chloride 103 Carbon Dioxide 27 Anion Gap 7 BUN 13 D Creatinine 0.85 Estim Creat Clear Calc 83 Estimated GFR > 60 Glucose 122 H Calcium 8.6 Magnesium 1.9 Total Bilirubin 0.5 AST 56 ALT 38 Alkaline Phosphatase 46 Total Protein 7.0 Albumin 3.9 Preliminary micro results at discharge 01/15/25 11:35 Blood Culture - Preliminary Blood 01/15/25 11:37 Blood Culture - Preliminary Blood Discharge Plan Discharge Attending physician on discharge: Clay Rice Consulting providers: Arnie Benitez Discharging Clinician: Clay Rice Anticipated Discharge Date/Time: 01/18/25 14:56 Patient Disposition: Home Activity: may shower and as tolerated Diet: low fiber Discharge Instructions: * Give patient instructions regarding low-fiber diet * No prescriptions for pain medication required. * Patient should call Dr. Clark office and make a follow-up appointment for 2 weeks. * If pain recurs, call Dr. Kuo or go to the emergency room. * Take antibiotics until they are gone. Patient Instructions: Antibiotic Form Patient Language: Taiwanese Stand Alone Forms: General Discharge Information Follow-up/Referrals: Jaquan Kuo MD [Physician] - 2 Weeks (Call for appointment) Discharge Medications: New levofloxacin 750 mg tablet 750 mg PO DAILY 5 Days Qty: 5 0RF metronidazole 500 mg tablet 500 mg PO TID Qty: 14 0RF Continued pantoprazole 40 mg tablet,delayed release (DR/EC) 40 mg PO QAM dicyclomine 10 mg capsule 10 mg PO TID Date of admission: 01/16/25 09:17 Primary Care Provider: Saqib,Tracy Klein Admitting Provider: Clay Rice Attending physician on admission: Clay Rice Condition: Improved
== END 2025-01-18 15:35 | disposition home or self-care (01) | DRG 392 ==
LOC: ANHED 10:51 → ANH3MEDSUR 12:33
PROVIDERS: Emergency Medicine; Nurse Practitioner Acute Care; Admitting Provider Internal Medicine; Emergency Provider Physician Assistant; PCP Nurse Practitioner Family; Visit Provider Internal Medicine
DX: K57.20 Diverticulitis of large intestine with perforation and abscess without bleeding (principal); K21.9 Gastro-esophageal reflux disease without esophagitis; K76.0 Fatty (change of) liver, not elsewhere classified; Z87.19 Personal history of other diseases of the digestive system
CPT/HCPCS: 36415; 74177; 80048; 80053; 80061; 81001; 83036; 83605; 83690; 83735; 85025; 85610; 85730; 87040; 96361; 96365; 96368; 96375; 96376; 99285; A9270; G0378; J0696; J1171; J1650; J1836; J1885; J2270; J2405; J2470; J7030; Q9967

== ENCOUNTER 2025-04-15 14:26 | Emergency (ER) | payer OTHER, SELFPAY ==
[2025-04-15] VITALS (7 sets, daily range): BP systolic 154–178; BP diastolic 97–120; PULSE 68–103; RESP 12–23; TEMP 36.3–36.8; O2SAT 96–100
--- NOTE | ~2025-04-15 | XR_ITS ---
Exam: Chest x-ray 2 views. CLINICAL HISTORY: CP TECHNIQUE: Frontal and lateral images of the chest were obtained. Comparisons: None. FINDINGS: Heart is not enlarged. No pneumothorax. No pleural effusion. No free air in the diaphragm. No focal pulmonary consolidation. IMPRESSION: 1. No acute pulmonary process is identified. Reviewed, dictated and finalized at location A.
--- NOTE | ~2025-04-15 | CT_ITS ---
EXAMINATION: CTA chest abdomen pelvis DATE: 04/15/2025 16:52 INDICATION: Chest pain and abdominal pain TECHNIQUE: Computed tomographic angiography (CTA) of the chest and abdomen was performed with 100 cc of Omnipaque-350 intravenous contrast. Additional 3D reconstructions utilizing rotating maximum inten sity projection (MIP) were performed. Automated exposure control and iterative reconstruction Gu[place] Local ue were employed. The dose-length product was 600.48 mGy-cm. COMPARISON: 01/15/2025 FINDINGS: CHEST: Lungs are clear with no pneumonia, pulmonary edema, pleural effusion or pneumothorax. Heart size is n ormal. No pericardial effusion. Thoracic aorta is normal in caliber with no dissection. No pathologic ally enlarged thoracic lymphadenopathy. Severe thoracic spondylosis. Abdomen and pelvis: Liver, gallbladder, spleen, pancreas, bilateral adrenal glands and kidneys are normal. Mild sigmoid d iverticulosis without adjacent comparison to suggest diverticular colitis. Small bowel and appendix a re normal. Bladder is normal. Small fat-containing left inguinal hernia. Abdominal aorta is normal in caliber with no dissection. No free intraperitoneal gas or fluid. No pathologically enlarged abdomin al or pelvic lymphadenopathy. Moderate lumbar spondylosis. IMPRESSION: 1. Normal aorta with no aneurysm or dissection. No other acute cardiopulmonary disease or acute intra -abdominal/pelvic process. Reviewed, dictated and finalized at location A. IMPRESSION: 1. Normal aorta with no aneurysm or dissection. No other acute cardiopulmonary disease or acute intra-abdominal/pelvic process.
--- NOTE | 2025-04-15 14:35 | ECG_ITS ---
Test Date: 2025-04-15 14:44:10 Measurements Intervals [place] Rate: 89 P: 46 AR: 136 QRS: 38 QRSD: 98 T: 62 QT: 350 QTc: 426 Interpretive Statements SINUS RHYTHM BASELINE ARTIFACT- I, III, AVR, AVL, AVF, V1-V6 NORMAL ECG No previous ECG available for comparison Electronically Signed On 04-15-2025 14:47:26 CDT by Segun Orozco D.O.
--- OUTSIDE RECORDS SUMMARY | 2025-04-15 14:52 | XMS_ITS | Encounter Summary ---
Author Organization [facility] Address [address] [place] [id number] Care Team Providers Care Tax Services Specialist Name Role Phone Martell Kelly MD Primary Care Provider U Tess Raman MANAGER TRACK Primary Care Provider [phone] Hernesto Loo MANAGER TRACK Primary Care Provider [phone] Encounter Details Date Type Department Care Team (Late st Contact Info) Description 09/16/2020 Medication Management [facility] Family & Internal Medicine [address] [id number] Martell Kelly MD Social History [...] COVID-19? 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 encounter Plan of Treatment Not on file documented as of this encounter Visit Diagnoses Diagnosis Periumbilical abdominal pain- Primary Abdominal pain, periumbilic documented in this encounter Care Teams Tax Services Specialist Relationship Specialty Start Date End Date Martell Kelly MD PCP - General INTERNAL MEDICINE 07/06/20 12/08/22 [place] [address], [address] [place], [place] [id number] PCP - General Nurse Practitioner Family 12/09/2208/06/23 Hernesto Loo NP [address] [place] [id number] PCP - General Nurse Practitioner Family 08/07/23 documented as of this encounter
--- OUTSIDE RECORDS SUMMARY | 2025-04-15 14:52 | XMS_ITS | Clinical Summary ---
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
--- OUTSIDE RECORDS SUMMARY | 2025-04-15 14:52 | XMS_ITS | Clinical Summary ---
Author Organization [facility] Address [address] [place] [address] Care Team Providers Care Lidar Technician Name Role Phone Hernesto Loo NP Primary Care Provider [phone] Allergies Active Allergy Reactions Criticality Noted Date [...] 5:20 PM CDT Height 165.1 cm (5' 5) 01/27/2024 5:20 PM CDT Body Mass Index [...] - 2023-2 5 season) 2024 PHQ-2 (Physician [place]) 09/04/2024 Meningococcal B Vaccine Aged Out No l onger eligible based on patient's age to complete this topic Meningococcal Vaccine Aged Out No bobby dayana eligible based on patient's age to complete this topic RSV Immunizations Under 20 Months Aged Out No longer eligible based on patient's age to complete this topic Insurance [employer] [place] Care Teams Lidar Technician Relationship Specialty Start Date End Date Hernesto Loo NP [address] [place] [phone] PCP - General Nurse Practitioner Family 08/07/23
[2025-04-15 15:07] LABS: Hematocrit 52.1 % (42.0-52.0); Hemoglobin 19.5 g/dL (14.0-18.0); Immature Granulocyte Percent A 1.1 % (0-0.5); Lymphocytes Absolute Auto 4.24 K/mm3 (0.9-3.2); Mean Corpuscular HGB Conc 37.4 g/dl (32-36); Mean Corpuscular Hemoglobin 32.4 pg (26-34); Mean Corpuscular Volume 86.5 fl (80-100); Nucleated Red Blood Cells Absolute Auto 0.000 K/mm3 (0.0-0.012); Nucleated Red Blood Cells Perc 0.0 % (0.0-0.2); Platelet Count Result 296 k/mm3 (150-375); Red Blood Count 6.02 M/mm3 (4.6-6.20); White Blood Count 16.2 K/mm3 (4.5-10.0)
[2025-04-15 15:20] LABS: Alanine Aminotransferase 31 U/L (6-50); Albumin Level 5.3 g/dL (3.5-5.1); Alkaline Phosphatase 71 U/L (38-126); Anion Gap 18 mmol/L (4-12); Aspartate Amino Transferase 33 U/L (17-59); Bilirubin,Total 2.1 mg/dL (0.2-1.3); Blood Urea Nitrogen 19 mg/dL (9-20); Calcium 10.7 mg/dL (8.4-10.2); Carbon Dioxide 14 mmol/L (22-30); Chloride 104 mmol/L (98-107); Estimated CRCL calculation 64 ml/min; Estimated Glomerular Filt Rate > 60; Glucose 126 mg/dL (65-110); INR 1.0; Lipase 186 U/L (23-300); Partial Thromboplastin Time 26.9 Seconds (22.3-36.8); Potassium 4.0 mmol/L (3.4-5.0); Prothrombin Time 12.9 Seconds (11.1-14.7); Sodium 136 mmol/L (137-145); Total Protein 9.2 g/dL (6.3-8.2)
[2025-04-15 15:32] LABS: Troponin I < 0.012 ng/mL (0.000-0.034)
[2025-04-15] MEDS: SODIUM CHLORIDE 0.9% IV 1,000 ML 999 ML IV CONT (16:23)
--- NOTE | 2025-04-15 16:26 | ED_ITS ---
HPI - Abdominal Pain General Chief Complaint: Nausea/Vomiting/Diarrhea Stated Complaint: n/v since . abdominal pain Time Seen by Provider: 04/15/25 16:17 Source: patient Mode of arrival: ambulatory Limitations: no limitations History of Present Illness HPI narrative: This is a 54-year-old male that presents to the emergency department for abdominal pain, nausea and vomiting. Ongoing over the last couple of days. Denies fevers, diarrhea, dysuria. Related Data Home Medications ?Medication ?Instructions ?Recorded ?Confirmed ?Last Taken ?Type pantoprazole 40 mg tablet,delayed 40 mg PO QAM 01/22/24 01/15/25 01/15/25 History release dicyclomine 10 mg capsule 10 mg PO TID 02/02/24 01/15/25 01/15/25 History Allergies Allergy/AdvReac Type Severity Reaction Status Date / Time Penicillins Allergy Unknown Rash Verified 04/15/25 14:42 Review of Systems 2 Review of Systems: All systems reviewed & are unremarkable except as noted in HPI and below PMFSH Past Medical History Medical History (Updated 04/15/25 @ 18:57 by María Velazquez PA-C) Arthritis Pancreatitis Gallbladder polyp Hepatic steatosis Surgical History Surgical History History of umbilical hernia repair History of colonoscopy with polypectomy Social History Social History Smoking status: Never smoker Alcohol intake: never Substance use: never Substance use type: marijuana Do You Feel Safe in your Home?: Yes Lack of Transportation: No Lack of Food: Never True Current Housing: I Have Housing Concerned About Future Housing: No Difficulty Paying Gas/Electric Bills: No Difficulty Paying for Meds: No Currently Unemployed: No Education: High School Diploma/GED Difficulty w/ Childcare or Family Care: No Spiritual care concerns: No Exam 2 Narrative: GENERAL: Well-appearing, well-nourished, and in no acute distress. HEAD: Normocephalic, atraumatic. EYES: EOMI. ENT: Nares clear, no rhinorrhea or epistaxis. Mucous membranes moist. CHEST: Clear to auscultation. No respiratory distress. No wheezes rales or rhonchi HEART: Regular rate and rhythm. No murmur heard. Normal peripheral pulses. ABDOMEN: Soft, nondistended, normal active bowel sounds. Mild tenderness to palpation in the epigastrium EXTREMITIES: Normal range of motion. No edema. SKIN: Warm, dry, no rash. NEURO: No focal deficits. Alert and oriented x3. PSYCH: Normal mood and affect Course Vital Signs Vital signs: Vital Signs Temperature 97.3 F L 04/15/25 14:39 Pulse Rate 103 H 04/15/25 14:39 Respiratory Rate 20 04/15/25 14:39 Blood Pressure 157/102 H 04/15/25 14:39 Pulse Oximetry 99 04/15/25 14:39 Temperature 98.2 F 04/15/25 15:39 Pulse Rate 85 04/15/25 17:46 Respiratory Rate 23 H 04/15/25 17:46 Blood Pressure 173/97 H 04/15/25 17:46 Pulse Oximetry 96 04/15/25 17:46 Oxygen Delivery Room Air 04/15/25 15:26 MDM - Abdominal Pain MDM Narrative Medical decision making narrative: Patient presents the emergency department for epigastric abdominal pain, nausea vomiting. Ongoing over the last couple of days. Patient is afebrile and nontoxic appearing. His vitals are stable. Cbc leukocytosis to 16.2, likely due to recurrent vomiting. Also shows hemoconcentration. Metabolic panel with evidence of dehydration. Patient hydrated 2 L of IV fluids with closure of gap. EKG without acute ST changes, troponins are negative. CTA chest/abdomen/pelvis obtained for further evaluation. No acute findings. Patient with relief after antiemetic, fluid hydration. He is to follow up with primary provider. He was given warnings to return to the ER Differential Diagnosis Differential diagnosis: Likely pancreatitis, small bowel obstruction and other (Biliary colic, viral symptoms) Lab Data Attestation: I reviewed the patient's lab results. 04/15/25 14:56 04/15/25 17:45 Labs: Lab Results 04/15/25 04/15/25 Range/Units 14:56 17:45 WBC 16.2 H (4.5-10.0) K/mm3 RBC 6.02 (4.6-6.20) M/mm3 Hgb 19.5 H D (14.0-18.0) g/dL Hct 52.1 H (42.0-52.0) % MCV 86.5 (80-100) fl MCH 32.4 (26-34) pg MCHC 37.4 H (32-36) g/dl RDW 13.4 (11.5-14.5) % Plt Count 296 (150-375) k/mm3 MPV 8.6 (7.4-10.4) fl Immature Gran % (Auto) 1.1 H (0-0.5) % Neut % (Auto) 65.4 (45.5-73.1) % Lymph % (Auto) 26.2 (18.3-44.2) % Canyon % (Auto) 6.1 (2.6-8.5) % Eos % (Auto) 0.6 (0-4.4) % Baso % (Auto) 0.6 (0.2-1.2) % Lymph # (Auto) 4.24 H (0.9-3.2) K/mm3 Canyon # (Auto) 1.0 H (0.1-0.6) K/mm3 Eos # (Auto) 0.1 (0-0.3) K/mm3 Baso # (Auto) 0.1 (0.0-0.1) K/mm3 Abs Immat Gran (auto) 0.17 H (0.00-0.031) K/mm3 Absolute Neuts (auto) 10.6 H (1.3-6.7) K/mm3 Absolute Nucleated RBC 0.000 (0.0-0.012) K/mm3 Nucleated RBC % 0.0 (0.0-0.2) % PT 12.9 (11.1-14.7) Seconds INR 1.0 APTT 26.9 (22.3-36.8) Seconds Sodium 136 L 136 L (137-145) mmol/L Potassium 4.0 4.1 (3.4-5.0) mmol/L Chloride 104 102 (98-107) mmol/L Carbon Dioxide 14 L 22 (22-30) mmol/L Anion Gap 18 H 12 (4-12) mmol/L BUN 19 20 (9-20) mg/dL Creatinine 1.13 0.97 (0.7-1.3) mg/dL Estim Creat Clear Calc 64 74 ml/min Estimated GFR > 60 > 60 (59 - ) Glucose 126 H 103 (65-110) mg/dL Calcium 10.7 H 9.6 (8.4-10.2) mg/dL Total Bilirubin 2.1 H (0.2-1.3) mg/dL AST 33 (17-59) U/L ALT 31 (6-50) U/L Alkaline Phosphatase 71 (38-126) U/L Troponin I < 0.012 < 0.012 (0.000-0.034) ng/mL Total Protein 9.2 H (6.3-8.2) g/dL Albumin 5.3 H (3.5-5.1) g/dL Lipase 186 (23-300) U/L Imaging Data Radiologist's impression: ITS Impressions Chest X-Ray 04/15/25 15:25 IMPRESSION: 1. No acute pulmonary process is identified. Chest/Abdomen/Pelvis CTA 04/15/25 17:13 IMPRESSION: 1. Normal aorta with no aneurysm or dissection. No other acute cardiopulmonary disease or acute intra-abdominal/pelvic process. ECG Data EKG #1: ECG completion date: 04/15/25 normal rate, sinus rhythm, no ST changes and normal QT Critical Care Time Critical Care Time Critical Care Time: No Discharge Plan Discharge Clinical Impression: Dehydration Abdominal pain Qualifiers: Abdominal location: epigastric Qualified Code(s): R10.13 - Epigastric pain Patient Disposition: Home Condition: Improved Instructions: Dehydration (ED), Acute Nausea and Vomiting (ED), Abdominal Pain (ED) Additional Instructions: Return to the ER if you experience fever, abdominal pain with nausea and vomiting, you are unable to keep down liquids or solids, blood in the stool, pain or burning with urination, blood in the urine or any other symptoms that are concerning to you Small, frequent meals. Morgan diet. Remain well hydrated. Ondansetron as needed for nausea Follow up with your primary care doctor Patient Language: Italian Prescriptions: New ondansetron 4 mg tablet,disintegrating 4 mg PO Q8H PRN (Reason: nausea and vomiting) Qty: 14 0RF No Action pantoprazole 40 mg tablet,delayed release (DR/EC) 40 mg PO QAM dicyclomine 10 mg capsule 10 mg PO TID levofloxacin 750 mg tablet 750 mg PO DAILY 5 Days Qty: 5 0RF metronidazole 500 mg tablet 500 mg PO TID Qty: 14 0RF Follow-up/Referrals: Saqib,Tracy Klein, RUBBER TUBING BACKER [Primary Care Provider] -
[2025-04-15] MEDS: FAMOTIDINE 20 MG/2 ML VIAL IV PUSH (16:28)
[2025-04-15] MEDS: ONDANSETRON INJ 4 MG/2 ML VIAL IV PUSH (16:28)
[2025-04-15] MEDS: MORPHINE SULFATE (*CRX) 4 MG/ML INJ IV PUSH (16:28)
[2025-04-15] MEDS: LACTATED RINGERS 1,000 ML 999 ML IV CONT (17:36)
--- NOTE | 2025-04-15 17:40 | ECG_ITS ---
Test Date: 2025-04-15 17:49:48 Measurements Intervals [place]ina Rate: 75 P: 30 IA: 155 QRS: -3 QRSD: 78 T: 36 QT: 363 QTc: 408 Interpretive Statements SINUS RHYTHM BASELINE ARTIFACT- I, III, AVR, AVL, AVF NORMAL ECG Compared to ECG 04/15/2025 14:44:10 No significant changes Electronically Signed On 04-15-2025 20:39:06 CDT by Segun Orozco D.O.
--- OUTSIDE RECORDS SUMMARY | 2025-04-15 18:00 | XMS_ITS | Encounter Summary ---
Author Organization [facility] Address [address] [place] [id number] Care Team Providers Care Diesel Service Technician Name Role Phone Martell Kelly MD Primary Care Provider U Tess Raman FIXED CAPITAL CLERK Primary Care Provider [phone] Hernesto Loo FIXED CAPITAL CLERK Primary Care Provider [phone] Encounter Details Date Type Department Care Team (Late st Contact Info) Description 09/16/2020 Medication Management [facility] Family & Internal Medicine [address] [address] Martell Kelly MD Social History [...] COVID-19? 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 encounter Plan of Treatment Not on file documented as of this encounter Visit Diagnoses Diagnosis Periumbilical abdominal pain- Primary Abdominal pain, periumbilic documented in this encounter Care Teams Diesel Service Technician Relationship Specialty Start Date End Date Martell Kelly MD PCP - General INTERNAL MEDICINE 07/06/20 12/08/22 [place] [address], [address] [place], [place] [id number] PCP - General Nurse Practitioner Family 12/09/2208/06/23 Hernesto Loo NP [address] [place] [phone] PCP - General Nurse Practitioner Family 08/07/23 documented as of this encounter
--- OUTSIDE RECORDS SUMMARY | 2025-04-15 18:00 | XMS_ITS | Clinical Summary ---
Author Organization [facility] Address [address] [place] [address] Care Team Providers Care Director Social Name Role Phone Hernesto Loo NP Primary Care Provider [phone] Allergies Active Allergy Reactions Criticality Noted Date [...] - 2023-2 5 season) 2024 PHQ-2 (Physician [place]) 09/04/2024 Meningococcal B Vaccine Aged Out No l onger eligible based on patient's age to complete this topic Meningococcal Vaccine Aged Out No bobby dayana eligible based on patient's age to complete this topic RSV Immunizations Under 20 Months Aged Out No longer eligible based on patient's age to complete this topic Insurance [employer] Care Teams Director Social Relationship Specialty Start Date End Date Hernesto Loo NP [address] [place] [id number] PCP - General Nurse Practitioner Family 08/07/23
--- OUTSIDE RECORDS SUMMARY | 2025-04-15 18:00 | XMS_ITS | Clinical Summary ---
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
--- OUTSIDE RECORDS SUMMARY | 2025-04-15 18:00 | XMS_ITS | Continuity of Care Document ---
Author Organization [facility] Address [address] [place] [address] [place] [address] Phone Care Team Providers Care Ross Lift Operator Name Role Phone Sammy Cowan DO Unavailable Unavailable Advance Directives Directive Yes / No Effective Date File Name No Information Encounters Encounter Description Practice Location Reason(s) For Visit Diagnoses Date Provider Providers Copied on Encounter [facility], [address], [place], [place], [id number], [place] tel:[phone] [facility] [place] No Information Camryn Lerma. [address] [facility], [place], [address], [place]. tel:[phone] Family History Family Member Type Diagnosis Age At Onset No Information Payers Payer name Insurance type Covered constitution party ID Authoriza tion(s) No Information Social History [...]
[2025-04-15 18:15] LABS: Troponin I < 0.012 ng/mL (0.000-0.034)
[2025-04-15 18:50] LABS: Anion Gap 12 mmol/L (4-12); Blood Urea Nitrogen 20 mg/dL (9-20); Calcium 9.6 mg/dL (8.4-10.2); Carbon Dioxide 22 mmol/L (22-30); Chloride 102 mmol/L (98-107); Estimated CRCL calculation 74 ml/min; Estimated Glomerular Filt Rate > 60; Glucose 103 mg/dL (65-110); Potassium 4.1 mmol/L (3.4-5.0); Sodium 136 mmol/L (137-145)
== END 2025-04-15 19:23 | disposition home or self-care (01) ==
PROVIDERS: Emergency Medicine; Emergency Provider Physician Assistant; PCP Nurse Practitioner Family
DX: E86.0 Dehydration (principal); R10.13 Epigastric pain
CPT/HCPCS: 36415; 71046; 71275; 74174; 80048; 80053; 83690; 84484; 85025; 85610; 85730; 93005; 96361; 96374; 96375; 99284; J2270; J2405; J7030; J7120; Q9967

== ENCOUNTER 2025-04-18 09:29 | Emergency (ER) | payer OTHER, SELFPAY ==
[2025-04-18] VITALS (8 sets, daily range): BP systolic 132–177; BP diastolic 100–108; PULSE 77–90; RESP 16–18; TEMP 36.7; O2SAT 98–100
--- NOTE | ~2025-04-18 | CT_ITS ---
EXAMINATION: CT abdomen pelvis w con DATE: 04/18/2025 12:02 INDICATION: Abdomen pain. Nausea and vomiting. TECHNIQUE: Computed tomography (CT) of the abdomen and pelvis was performed with 100 cc Omnipaque 350 intravenous contrast. The dose-length product was 442.43 mGy-cm. Automated exposure control and iter ative reconstruction technique were employed. COMPARISON: CT dated 04/15/2025. FINDINGS: Lung bases are unremarkable. Heart size normal. No significant pleural or pericardial effus ion. Fatty infiltration of the liver. The spleen, pancreas, adrenal glands are unremarkable. Gallblad pia is present. Nonobstructive bowel gas pattern. Normal appendix. Colonic diverticulosis without jorgito dence for diverticulitis. No significant vascular abnormality. No lymphadenopathy. Small fat-containi ng left inguinal hernia. There is grade 1 spondylolisthesis at L5-S1 secondary to spondylolysis. Ther e is grade 1 spondylolisthesis at L4-5 secondary to facet hypertrophy. There are nonobstructing bilat eral renal stones. No ureteral stones or hydronephrosis. IMPRESSION: 1. Nonobstructing bilateral nephrolithiasis. 2: Small fat-containing left inguinal hernia. Reviewed, dictated and finalized at location A.
--- OUTSIDE RECORDS SUMMARY | 2025-04-18 09:34 | XMS_ITS | Clinical Summary ---
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
--- OUTSIDE RECORDS SUMMARY | 2025-04-18 10:32 | XMS_ITS | Clinical Summary ---
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
--- OUTSIDE RECORDS SUMMARY | 2025-04-18 10:32 | XMS_ITS | Continuity of Care Document ---
Author Organization [facility] Address [address] [place] [address] [place] [address] Phone Care Team Providers Care Control Electrician Name Role Phone Sammy Cowan DO Unavailable Unavailable Advance Directives Directive Yes / No Effective Date File Name No Information Encounters Encounter Description Practice Location Reason(s) For Visit Diagnoses Date Provider Providers Copied on Encounter [facility], [address], [place], [place], [id number], [place] tel:[phone] [facility] [place] No Information Camryn Lerma. [address] [facility], [place], [address], [place]. tel:[phone] Family History Family Member Type Diagnosis Age At Onset No Information Payers Payer name Insurance type Covered alliance party ID Authoriza tion(s) No Information Social [...]
[2025-04-18 11:15] LABS: Hematocrit 49.6 % (42.0-52.0); Hemoglobin 18.0 g/dL (14.0-18.0); Immature Granulocyte Percent A 0.8 % (0-0.5); Lymphocytes Absolute Auto 1.95 K/mm3 (0.9-3.2); Mean Corpuscular HGB Conc 36.3 g/dl (32-36); Mean Corpuscular Hemoglobin 31.5 pg (26-34); Mean Corpuscular Volume 86.7 fl (80-100); Nucleated Red Blood Cells Absolute Auto 0.000 K/mm3 (0.0-0.012); Nucleated Red Blood Cells Perc 0.0 % (0.0-0.2); Platelet Count Result 261 k/mm3 (150-375); Red Blood Count 5.72 M/mm3 (4.6-6.20); White Blood Count 11.6 K/mm3 (4.5-10.0)
[2025-04-18] MEDS: METOCLOPRAMIDE HCL INJ 10 MG/2 ML VIAL IV PUSH (11:36)
[2025-04-18] MEDS: FAMOTIDINE 20 MG/2 ML VIAL IV PUSH (11:36)
[2025-04-18] MEDS: SODIUM CHLORIDE 0.9% IV 1,000 ML 999 ML IV CONT ×2 (11:36→13:22)
[2025-04-18 11:39] LABS: Alanine Aminotransferase 28 U/L (6-50); Albumin Level 5.0 g/dL (3.5-5.1); Alkaline Phosphatase 60 U/L (38-126); Anion Gap 14 mmol/L (4-12); Aspartate Amino Transferase 33 U/L (17-59); Bilirubin,Total 2.4 mg/dL (0.2-1.3); Blood Urea Nitrogen 25 mg/dL (9-20); Calcium 10.2 mg/dL (8.4-10.2); Carbon Dioxide 21 mmol/L (22-30); Chloride 102 mmol/L (98-107); Estimated CRCL calculation 59 ml/min; Estimated Glomerular Filt Rate > 60; Glucose 121 mg/dL (65-110); Lipase 158 U/L (23-300); Potassium 3.9 mmol/L (3.4-5.0); Sodium 137 mmol/L (137-145); Total Protein 8.1 g/dL (6.3-8.2)
[2025-04-18 12:25] LABS: Add Urine Microscopic? YES; Appearance Urine Clear (Clear); Glucose Urine UA Negative (Negative); Leukocyte Esterase Ur Negative LEU/UL (Negative); Nitrate Urine Negative (Negative); Specific Grav Ur > 1.045 (1.001-1.035)
[2025-04-18 12:55] LABS: Influenza A QL RT-PCR Negative (Negative); Influenza B QL RT-PCR Negative (Negative); RSV RNA, RT-PCR Negative (Negative); SARS-CoV-2 RNA PCR Negative (Negative)
--- NOTE | 2025-04-18 13:01 | ED_ITS ---
HPI - Nausea/Vomiting/Diarrhea General Chief complaint: Nausea/Vomiting/Diarrhea Stated complaint: n/v Time Seen by Provider: 04/18/25 10:21 Source: patient and old records reviewed Mode of arrival: ambulatory Limitations: no limitations History of Present Illness HPI Narrative: Patient is a 54-year-old male who presents the ED with report of nausea, vomiting. Patient reports having persistent nausea and vomiting since Monday. Reports he is unable to keep down any food or drink since then. She was seen in the ED here on 04/15 and told he had a stomach bug. He does not believe this is accurate. He wants a 2nd evaluation. Does report some diffuse abdominal pain. Denies diarrhea, constipation, fevers. Related Data Home Medications ?Medication ?Instructions ?Recorded ?Confirmed ?Last Taken ?Type pantoprazole 40 mg tablet,delayed 40 mg PO QAM 01/22/24 01/15/25 01/15/25 History release dicyclomine 10 mg capsule 10 mg PO TID 02/02/24 01/15/25 01/15/25 History Allergies Allergy/AdvReac Type Severity Reaction Status Date / Time Penicillins Allergy Unknown Rash Verified 04/15/25 14:42 Review of Systems 2 Review of Systems: All systems reviewed & are unremarkable except as noted in HPI. All systems reviewed & are unremarkable except as noted in HPI and below PMFSH Past Medical History Medical History Arthritis Pancreatitis Gallbladder polyp Hepatic steatosis Surgical History Surgical History History of umbilical hernia repair History of colonoscopy with polypectomy Social History Social History Smoking status: Never smoker Alcohol intake: never Substance use: never Substance use type: marijuana Do You Feel Safe in your Home?: Yes Lack of Transportation: No Lack of Food: Never True Current Housing: I Have Housing Concerned About Future Housing: No Difficulty Paying Gas/Electric Bills: No Difficulty Paying for Meds: No Currently Unemployed: No Education: High School Diploma/GED Difficulty w/ Childcare or Family Care: No Spiritual care concerns: No Exam 2 Narrative: GENERAL: Well appearing, well-nourished, non-toxic, in no acute distress. HEAD: Normocephalic, atraumatic. RESPIRATORY: Airway patent, respirations nonlabored. Clear to auscultation bilaterally, no rales, rhonchi, wheezing. CARDIOVASCULAR: Regular rate and rhythm without murmurs, rubs, or gallops. ABDOMINAL: Soft, mild diffuse tenderness throughout abdomen, no significant focal tenderness. Nondistended. Normoactive BS. MUSCULOSKELETAL: Moves all extremities. No gross deformities. SKIN: Warm, dry, normal color. NEURO: A&O X3. Speech clear. Cranial nerves II-XII grossly intact. Steady gait. No ataxic movements. PSYCHIATRIC: Appropriate mood and affect. Normal interaction. Course Vital Signs Vital signs: Vital Signs Temperature 98.0 F 04/18/25 09:33 Pulse Rate 87 04/18/25 09:33 Respiratory Rate 16 04/18/25 09:33 Blood Pressure 177/108 H 04/18/25 09:33 Pulse Oximetry 100 04/18/25 09:33 Temperature 98.0 F 04/18/25 09:33 Pulse Rate 77 04/18/25 13:44 Respiratory Rate 18 04/18/25 13:44 Blood Pressure 132/101 H 04/18/25 10:31 Pulse Oximetry 99 04/18/25 13:44 MDM - Nausea/Vomiting/Diarrhea MDM Narrative Medical decision making narrative: Patient presented to ED with several day history of nausea, vomiting, difficulty keeping down food and drink. Seen in the ED here a few days ago and was told he had gastroenteritis. Does not believe this is an accurate diagnosis. Vital signs are stable upon arrival here today. Patient is afebrile. Cbc with blood cell count of 11.6. Down trending from recent ED visit. CMP with bicarb of 21, anion gap of 14. Consistent with dehydration. Kidney function is stable. Otherwise stable electrolytes. Total bilirubin is mildly elevated to 2.4. Consistent with previous records. Patient without focal right upper quadrant tenderness on exam. Otherwise normal LFTs and lipase. UA again with evidence of dehydration, no signs of infection. Viral swabs are negative. CT scan of abdomen/pelvis was obtained and with chronic findings. No acute surgical abnormalities. Patient given 2 L of fluid, Pepcid, Benadryl, Reglan, Bentyl. On re-evaluation, patient is feeling much better. States he is feeling the best he has in the past 1 week. Able to tolerate PO intake. Feel he is safe for discharge home. He denied significant improvement with Zofran at home. Will prescribe Reglan for home. Offered Phenergan suppositories, however patient politely declined. Recommended close follow-up with PCP, encourage plenty of fluid hydration. Discussed strict return precautions. Patient in agreement with plan. Feels comfortable going home. Discharged in stable condition. Medical Records Attestation: I reviewed the patient's medical records. Lab Data Attestation: I reviewed the patient's lab results. 04/18/25 11:08 04/18/25 11:08 Labs: Lab Results 04/18/25 04/18/25 04/18/25 Range/Units 11:08 12:07 12:11 WBC 11.6 H (4.5-10.0) K/mm3 RBC 5.72 (4.6-6.20) M/mm3 Hgb 18.0 (14.0-18.0) g/dL Hct 49.6 (42.0-52.0) % MCV 86.7 (80-100) fl MCH 31.5 (26-34) pg MCHC 36.3 H (32-36) g/dl RDW 13.2 (11.5-14.5) % Plt Count 261 (150-375) k/mm3 MPV 8.4 (7.4-10.4) fl Immature Gran % (Auto) 0.8 H (0-0.5) % Neut % (Auto) 74.4 H (45.5-73.1) % Lymph % (Auto) 16.8 L (18.3-44.2) % [place] % (Auto) 7.0 (2.6-8.5) % Eos % (Auto) 0.5 (0-4.4) % Baso % (Auto) 0.5 (0.2-1.2) % Lymph # (Auto) 1.95 (0.9-3.2) K/mm3 [place] # (Auto) 0.8 H (0.1-0.6) K/mm3 Eos # (Auto) 0.1 (0-0.3) K/mm3 Baso # (Auto) 0.1 (0.0-0.1) K/mm3 Abs Immat Gran (auto) 0.09 H (0.00-0.031) K/mm3 Absolute Neuts (auto) 8.6 H (1.3-6.7) K/mm3 Absolute Nucleated RBC 0.000 (0.0-0.012) K/mm3 Nucleated RBC % 0.0 (0.0-0.2) % Sodium 137 (137-145) mmol/L Potassium 3.9 (3.4-5.0) mmol/L Chloride 102 (98-107) mmol/L Carbon Dioxide 21 L (22-30) mmol/L Anion Gap 14 H (4-12) mmol/L BUN 25 H (9-20) mg/dL Creatinine 1.08 (0.7-1.3) mg/dL Estim Creat Clear Calc 59 ml/min Estimated GFR > 60 (59 - ) Glucose 121 H (65-110) mg/dL Calcium 10.2 (8.4-10.2) mg/dL Total Bilirubin 2.4 H (0.2-1.3) mg/dL AST 33 (17-59) U/L ALT 28 (6-50) U/L Alkaline Phosphatase 60 (38-126) U/L Total Protein 8.1 (6.3-8.2) g/dL Albumin 5.0 (3.5-5.1) g/dL Lipase 158 (23-300) U/L Urine Color Yellow (Yellow) Urine Appearance Clear (Clear) Urine pH 6.5 (5.0-9.0) Ur Specific [place] > 1.045 H (1.001-1.035) Urine Protein 1+ H (Negative) mg/dL Urine Glucose (UA) Negative (Negative) mg/dL Urine Ketones 1+ H (Negative) mg/dL Ur Blood (Man) Negative (Negative) Urine Nitrate Negative (Negative) Urine Bilirubin Negative (Negative) Urine Urobilinogen 1.0 (<2.0) mg/dL Leukocyte Esterase Rfl Negative (Negative) OFE/UL Urine RBC 0-2 (0-2) /hpf Urine WBC 0-5 (0-3) /hpf Ur Squamous Epith Cells None seen (Few) /hpf Urine Bacteria None seen /hpf Urine Casts 3-5 Influenza A (RT-PCR) Negative (Negative) Influenza B (RT-PCR) Negative (Negative) RSV (RT-PCR) Negative (Negative) SARS-CoV-2 RNA (RT-PCR) Negative (Negative) Imaging Data Attestation: I personally reviewed and interpreted this imaging study as follows: Radiologist's impression: ITS Impressions Abdomen/Pelvis CT 04/18/25 12:04 IMPRESSION: 1. Nonobstructing bilateral nephrolithiasis. 2: Small fat-containing left inguinal hernia. Discharge Plan Discharge Clinical Impression: Dehydration Nausea and vomiting Qualifiers: Vomiting type: unspecified Qualified Code(s): R11.2 - Nausea with vomiting, unspecified Patient Disposition: Home Condition: Stable Instructions: Antibiotic Form, Dehydration (ED), Gastroenteritis (ED), Acute Nausea and Vomiting (ED) Additional Instructions: Utilize zofran and Reglan as needed for further nausea. Utilize Tylenol, Bentyl as needed for abdominal discomfort. Increase fluid intake. Recommend electrolyte rich fluids, gatorade, pedialyte, body armour. Recommend clear liquids or bland diet until symptoms improve, such as bananas, rice, applesauce, toast, or crackers. Follow up with your primary care doctor for further evaluation. Return to the ED if you experience worsening or severe symptoms, unable to keep down food or drink, severe pain, fevers, rectal bleeding, vomiting blood, or any other symptoms of concern. Patient Language: Syrian Prescriptions: New metoclopramide HCl 5 mg tablet 5 mg PO Q6H PRN (Reason: nausea and vomiting) Qty: 15 0RF No Action pantoprazole 40 mg tablet,delayed release (DR/EC) 40 mg PO QAM dicyclomine 10 mg capsule 10 mg PO TID levofloxacin 750 mg tablet 750 mg PO DAILY 5 Days Qty: 5 0RF metronidazole 500 mg tablet 500 mg PO TID Qty: 14 0RF ondansetron 4 mg tablet,disintegrating 4 mg PO Q8H PRN (Reason: nausea and vomiting) Qty: 14 0RF Follow-up/Referrals: Mojgan,Tracy Klein NP [Primary Care Provider] - Time of Disposition: 14:20
[2025-04-18] MEDS: DICYCLOMINE HCL 10 MG CAPSULE 20 MG PO (13:22)
== END 2025-04-18 14:53 | disposition home or self-care (01) ==
PROVIDERS: Emergency Provider Physician Assistant; PCP Nurse Practitioner Family
DX: R11.2 Nausea with vomiting, unspecified (principal); E86.0 Dehydration; Z20.822 Contact with and (suspected) exposure to COVID-19; M19.90 Unspecified osteoarthritis, unspecified site; Z86.0100 Personal history of colon polyps, unspecified; N20.0 Calculus of kidney; K40.90 Unilateral inguinal hernia, without obstruction or gangrene, not specified as recurrent
CPT/HCPCS: 36415; 74177; 80053; 81001; 83690; 85025; 87637; 99283; 99284; A9270; J1200; J2765; J7030; Q9967